=== PATIENT | male | born 1950 | race Caucasian/White ===

== ENCOUNTER 2017-12-13 14:38 | Inpatient (IN) | payer OTHER ==
[~2017-12-13] VITALS: Ht 167.6 cm; Wt 120.7 kg
[~2017-12-13 14:38] MED LIST: ALBUTEROL 3 ML3 ML INH; ALBUTEROL0.09 MG/A1 INH; ATORVASTATIN CA20 MG PO; AUGMENTIN 875875 MG PO; DIOVAN 160 MG160 MG PO; METFORMIN1000 MG PO; NORVASC 5MG TAB5 MG PO; NOVOLOG FLEX100 U/ML SC; NOVOLOG100 U/ML SC; PREDNISONE 10MG10 M1 PO; SYMBICORT 80/4.1 PUF INH; VALSARTAN AND H1 TA3 PO
--- NOTE | 2017-12-13 15:29 | ED DYSPNEA/ASTHMA COMPLAINT ---
History of Present Illness General Chief Complaint: Dyspnea (COPD, CHF, Other) Stated Complaint: SOB Source: patient, family Exam Limitations: no limitations Allergies Coded Allergies: NO KNOWN ALLERGIES (03/06/15) Reconcile Medications Albuterol Sulfate (Albuterol Sulfate Hfa) 0.09 MG/Actuation JEFF 2 PUFF INH Q4- 6 PRN PRN SHORTNESS OF BREATH 90 MCG PER PUFF Amlodipine (Norvasc 5MG Tab) 5 MG TABLET 1 TAB PO DAILY HTN (Reported) Amoxicillin/Clavulanate Potass (Amox-Clav 875-125 MG Tablet) 875 MG TAB 1 TAB PO BID LUNG INFECTION take 1st dose on 03/10 morning. PLEASE CONTINUE TILL 03/12/2015. Atorvastatin Calcium (Lipitor) 20 MG TABLET 1 TAB PO DAILY CHOLESTEROL ( Reported) Budesonide/Formoterol Fumara (Symbicort 80-4.5 Mcg Inhaler) 80 MCG/4.5 MCG PUF 2 PUF INH BID breathing INSULIN ASPART (Novolog Flexpen) 100 U/ML MELISSA 0 SC DAILY DIABETES BEFORE MEALS Blood Insulin Sugar Units <80 0 81-150 0 151-200 2 201-250 4 251-300 6 301-350 8 351-400 10 >400 Call Doctor Prednisone 10 MG TAB 0 PO DAILY BREATHING On 03/09 evening please take 20 mg PO prednisone. On Take 03/10 40 MG 03/11-03/12 30 MG 03/13-03/14 20 MG 03/15-03/16 10 MG Then Stop Valsartan (Diovan) 160 MG TAB 1 TAB PO DAILY blood pressure Triage Note: PT TO ED FOR WORSENING SOB THAT BEGAN ON SATURDAY, SAW PCP AND PLACED ON PRED AND ABX, SAW PCP AGAIN AND REFERRED TO ED FOR CONTINUING SOB, RA SAT 85% PLACED ON 2LNC AND RA IMPROVED TO 94%. PT REPORTING NON PRODUCTIVE COUGH, WEAKNESS AND LETHARGY, DENIES FEVERS. Triage Nurses Notes Reviewed? yes Onset: Gradual Duration: getting worse Timing: recent history Severity: severe HPI: Patient is a 67-year-old male with a past medical history of hypertension hyperlipidemia and diabetes and a former remote tobacco smoker presents with 45 years ago who presents to emergency with concerns of a one-week history of gradual onset of cough and dyspnea on exertion shortness of breath generalized weakness and fatigue chills and intermittent chest substernal pain. Patient was evaluated earlier this week was prescribed amoxicillin antitussives steroids and inhaler WITH complaining of worsening symptoms (Yasir Aguilar) Vital Signs & Intake/Output Vital Signs & Intake/Output Vital Signs Date Time Temp Pulse Resp B/P B/P Pulse O2 O2 Flow FiO2 Mean Ox Delivery Rate 12/13 1728 98 Nasal 2.0L Cannula 12/13 1454 98.6 89 18 167/77 99 Room Air (Randa HUGO,Compa Alex) Past History Travel History Traveled to [place] past 21 day No Medical History Any Pertinent Medical History? see below for history Neurological: NONE EENT: NONE Cardiovascular: hypertension, hyperlipidemia Respiratory: NONE Gastrointestinal: NONE Hepatic: NONE Renal: NONE Musculoskeletal: NONE Psychiatric: NONE Endocrine: diabetes Blood Disorders: NONE Cancer(s): NONE CANCER RESEARCHER/Reproductive: NONE History of MRSA: No History of VRE: No History of CDIFF: No Surgical History Surgical History: non-contributory Psychosocial History Who do you live with Spouse Services at Home None What is your primary language Macedonian Tobacco Use: Never used ETOH Use: denies use Illicit Drug Use: denies illicit drug use Family History Family History, If Any: FATHER (obesity, CAD s/p CABG). BROTHER (heart attack at age of 56). MOTHER (aortic aneurysm s/p repair). Relation not specified for: FH: aortic aneurysm FH: coronary artery bypass surgery FH: heart attack FH: obesity Hx Contributory? No (Yasir Aguilar) Review of Systems Review of Systems Constitutional: Reports: see HPI, chills. EENTM: Reports: no symptoms. Respiratory: Reports: see HPI, cough, short of breath. Cardiovascular: Reports: see HPI, peripheral edema. GI: Reports: no symptoms. Genitourinary: Reports: no symptoms. Musculoskeletal: Reports: see HPI. Skin: Reports: no symptoms. Neurological/Psychological: Reports: no symptoms. Hematologic/Endocrine: Reports: no symptoms. Immunologic/Allergic: Reports: no symptoms. All Other Systems: Reviewed and Negative (Yasir Aguilar) Physical Exam Physical Exam General Appearance: no apparent distress, obese Head: atraumatic Eyes: Bilateral: normal appearance, PERRL, EOMI. Ears, Nose, Throat: normal pharynx, normal ENT inspection, hearing grossly normal Neck: normal inspection Respiratory: no respiratory distress, rhonchi Peripheral Pulses: 2+ radial (R), 2+ radial (L) Gastrointestinal: normal bowel sounds, soft, non-tender Neurologic/Psych: no motor/sensory deficits, awake, alert, oriented x 3 Skin: intact, normal color, warm/dry Core Measures ACS in differential dx? No CVA/TIA Diagnosis No Sepsis Present: No Sepsis Focused Exam Completed? No (Yasir Aguilar) Progress Differential Diagnosis: asthma, AMI, bronchitis, costochondritis, CHF, COPD, musculoskeletal pain, pericarditis, pulmonary embolism, pneumonia, pneumothorax, rib fracture, unstable angina Diagnostic Imaging: Viewed by Me: Radiology Read. Initial ED EK BPM, LAD Prior EKG: unchanged Comments: PATIENT: ELADIO CARVALHO PRESENT AGE: 67 PATIENT ACCOUNT NO: [id number] : 51 LOCATION: [facility] ORDERING PHYSICIAN: Yasir ARREDONDO SERVICE DATE: 12/13/17 EXAM TYPE: RAD - XRY-CHEST XRAY, TWO VIEWS EXAMINATION: XR CHEST CLINICAL INFORMATION: Shortness of breath, leg swelling, cough and rhonchi COMPARISON: 03/14/2015 TECHNIQUE: 2 views of the chest were obtained. FINDINGS: Lungs are chronically hyperexpanded with relative flattening of diaphragms. No pulmonary edema, consolidation or pleural effusion. Cardiac silhouette is normal in size. Chronic, mild prominence of hilar vessels is noted. There is atherosclerotic calcification of the aorta. No acute osseous abnormality. IMPRESSION: 1. Pulmonary emphysema. 2. No evidence of cardiomegaly, congestive heart failure or other acute pathology compared to 03/14/2015. DICTATED BY: Ariel Donahue MD DATE/TIME DICTATED:12/13/171629 CORE EXTRUDER:JIMBO DATE/TIME TRANSCRIBED:12/13/171629 CONFIDENTIAL, DO NOT COPY WITHOUT (Yasir Aguilar) Plan of Care: Orders Procedure Date/time Status Consistent Carbohydrate 1 12/14 B Active LACTIC ACID 12/13 1841 Active Misc Message 12/13 175 Active ED Holding Orders 12/13 175 Active Admit to inpatient 12/13 175 Active Vital Signs 12/13 175 Active Code Status 12/13 175 Active COMPREHENSIVE METABOLIC PANEL 12/13 1635 Complete Telemetry/Concessions Manager 12/13 1543 Active LACTIC ACID 12/13 1541 Complete CBC WITHOUT DIFFERENTIAL 12/13 1541 Complete ARTERIAL BLOOD GAS (GEN) 12/13 1540 Complete RAPID VIRAL INFLUENZA A 12/13 1540 Complete LOWER RESPIRATORY CULTURE 12/13 1540 Active BLOOD CULTURE 12/13 1540 Active TROPONIN LEVEL 12/13 1540 Complete D-DIMER 12/13 1540 Complete B-TYPE NATRIURETIC PEP (BNP) 12/13 1540 Complete EKG 12/13 1540 Active Current Medications Sig/Maya Start time Last Medication Dose Stop Time Status Admin Sodium Chloride 1,000 ML BOLUS ONE 12/13 1745 UNVr (Normal Saline 0.9%) 12/13 1844 Laboratory Tests 12/13/17 1635: Lactic Acid 1.9 12/13/17 1635: Anion Gap 13, Estimated GFR 38 L, BUN/Creatinine Ratio 17.8, Glucose 177 H, Calcium 9.2, Total Bilirubin 0.3, AST 42, ALT 51, Alkaline Phosphatase 87, Troponin I < 0.01, Bcm-M-Qjmdolccuwh Pept 295 H, Total Protein 7.2, Albumin 3.6 , Globulin 3.6, Albumin/Globulin Ratio 1.0 L, D-Dimer High Sensitivty 242, CBC w Diff NO MAN DIFF REQ, RBC 4.63 L, MCV 95.8 H, MCH 31.8 H, MCHC 33.2, RDW 12.8, MPV 7.5, Gran % 71.4, Lymphocytes % 13.7 L, Monocytes % 14.6 H, Eosinophils % 0, Basophils % 0.3, Absolute Granulocytes 7.1 H, Absolute Lymphocytes 1.4, Absolute Monocytes 1.4 H, Absolute Eosinophils 0, Absolute Basophils 0 12/13/17 1550: Bicarbonate Actual 31 H, Mixed VBG pH 7.30 L, Mixed VBG pCO2 63 H, Mixed VBG O2 Saturation 35, Carboxyhemoglobin 1.2 L, O2 Concentration % RA, O2 Delivery Method RA, Phlebotomy Draw Site RIGHT RADIAL Microbiology 12/13 1745 BLOOD: Blood Culture - RECD 12/13 1635 BLOOD: Blood Culture - RECD 12/13 1540 LOWER RESP: Respiratory Culture - ORD 12/13 1540 LOWER RESP: Gram Stain - ORD 12/13 1525 NASOPHARYN: Influenza Virus A & B Rapid Smear - COMP Patient on initial presentation was noted to be hypoxic ABG was obtained patient was given 2 L of supplemental oxygen Patient on exam has rhonchi however no respiratory distress Patient after labs were resulted has concerns of a new onset of COPD and most likely bronchitis NO concerns of pneumonia pe or myocardial infarction, discussed admission with patient which she agrees. (Yasir Aguilar) (Randa HUGO,Compa Alex) Departure Departure Disposition: STILL A PATIENT Condition: Stable Clinical Impression Primary Impression: COPD exacerbation Secondary Impressions: Bronchitis, Respiratory failure Referrals: Alen HUGO,Solitario Ojeda (PCP/Family) Departure Forms: Customer Survey General Discharge Information Admission Note Spoke With: Marlon Prasad MD Documentation of Exam: Documentation of any treatments & extenuating circumstances including Concerns Regarding Discharge (functional status, medication knowledge or non-compliance, living conditions, etc.) that warrant an admission rather than observation: [ Patient requires pulmonary consultation repeat nebulizer IV Solu-Medrol repeat labs oxygen supplementation] (Yasir Aguilar) PA/WASHERETTE MACHINE OPERATOR Co-Sign Statement Statement: ED Attending supervision documentation- [X] I saw and evaluated the patient. I have also reviewed all the pertinent lab results and diagnostic results. I agree with the findings and the plan of care as documented in the PA's/WASHERETTE MACHINE OPERATOR's documentation. [] I have reviewed the ED Record and agree with the PA's/WASHERETTE MACHINE OPERATOR's documentation. [] Additions or exceptions (if any) to the PAs/WASHERETTE MACHINE OPERATOR's note and plan are summarized below: [] (Randa HUGO,Compa Alex) Critical Care Note Critical Care Note Critical Care Time: non-applicable (Yasir Aguilar)
--- NOTE | 2017-12-13 16:37 | RADIOLOGY REPORT ---
EXAMINATION: XR CHEST CLINICAL INFORMATION: Shortness of breath, leg swelling, cough and rhonchi COMPARISON: 03/14/2015 TECHNIQUE: 2 views of the chest were obtained. FINDINGS: Lungs are chronically hyperexpanded with relative flattening of diaphragms. No pulmonary edema, consolidation or pleural effusion. Cardiac silhouette is normal in size. Chronic, mild prominence of hilar vessels is noted. There is atherosclerotic calcification of the aorta. No acute osseous abnormality. IMPRESSION: 1. Pulmonary emphysema. 2. No evidence of cardiomegaly, congestive heart failure or other acute pathology compared to 03/14/2015.
[2017-12-13 16:51] LABS: ABSOLUTE BASOPHIL COUNT 0 /CUMM (0.0-0.2); ABSOLUTE EOSINOPHIL COUNT 0 /CUMM (0.0-0.7); ABSOLUTE GRANULOCYTE CT 7.1 /CUMM (1.4-6.5); ABSOLUTE LYMPH COUNT 1.4 /CUMM (1.2-3.4); ABSOLUTE MONOCYTE COUNT 1.4 /CUMM (0.10-0.60); BASOPHIL % 0.3 % (0.0-2.0); EOSINOPHIL % 0 % (0-5); GRANULOCYTE % 71.4 % (42.2-75.2); HEMATOCRIT 44.4 % (42-52); MEAN CORPUSCULAR HGB 31.8 PG (27.0-31.0); MEAN CORPUSCULAR HGB CONC 33.2 G/DL (33.0-37.0); MEAN CORPUSCULAR VOLUME 95.8 FL (80.0-94.0); MEAN PLATELET VOLUME 7.5 FL (7.4-10.4); PLATELET COUNT 339 /CUMM (130-400); RBC DISTRIBUTION WIDTH 12.8 % (11.5-14.5); RED BLOOD CELL CT 4.63 /CUMM (4.70-6.10); WHITE BLOOD CELL COUNT 9.9 /CUMM (4.8-10.8)
--- NOTE | 2017-12-13 18:06 | History & Physical ---
Vadim HUGO,[facility] 12/13/17 1805: General Information and HPI MD Statement: I have seen and personally examined ELADIO CARVALHO and documented this H&P. The patient is a 67 year old M who presented with a patient stated chief complaint of [shortness of breath]. Source of Information: patient Exam Limitations: no limitations History of Present Illness: 67 yo M pmhx of htn, hld, diabetes, [id number] smoking history but quit 12 years ago presenting for shortness of breath with exertion. The patient states that his episode last week. Started off as chest pain progressed cough. The patient states he went to his PCP about medications. Patient states that the medications given were albuterol, Robitussin, measure, and Augmentin. The patient then states that he is/congestion loosened up in his lungs which then the breathing issues. The patient states that the pain went away however his shortness of breath has worsened throughout 3. The patient had a follow-up appointment with his primary care physician today who stated that the patient needed a chest x-ray today and he was sent to the emergency department. The patient of note states that he has had swelling of his lower extremities the past 6 months. The patient does state his has been sick with a cough and cold. The patient denies any chest pain currently, fevers, chills, abdominal pain, nausea vomiting/diarrhea, headaches, changes in swelling, or changes in elimination. Allergies/Medications Allergies: Coded Allergies: venom-honey bee (ANAPHYLAXIS 12/13/17) Home Med list Albuterol Sulfate (Proair Hfa) 90 MCG HFA.AER.AD 2 PUF INH AD PRN RESP. ( Reported) Amlodipine Besylate 10 MG TABLET 1 TAB PO DAILY BP (Reported) Amoxicillin/Clavulanate Potass (Amox-Clav 875-125 MG Tablet) 875 MG-125 MG TABLET 1 TAB PO BID ANTIBIOTIC (Reported) Atorvastatin Calcium 20 MG TABLET 1 TAB PO DAILY CHOLESTEROL (Reported) Codeine Phosphate/Guaifenesi (Codeine-Guaifen 10-100 MG/5 Ml) 10 MG-100 MG/5 ML LIQUID 10 ML PO Q4H PRN COUGH (Reported) Metformin HCl 1,000 MG TABLET 1 TAB PO DAILY DM (Reported) Methylprednisolone 4 MG TAB.DS.PK STEROID TAPER (Reported) Past History Travel History Traveled to [place] past 21 day No Medical History Neurological: NONE EENT: NONE Cardiovascular: hypertension, hyperlipidemia Respiratory: NONE Gastrointestinal: NONE Hepatic: NONE Renal: NONE Musculoskeletal: NONE Psychiatric: NONE Endocrine: diabetes Blood Disorders: NONE Cancer(s): NONE METAL DEALER/Reproductive: NONE History of MRSA: No History of VRE: No History of CDIFF: No Surgical History Surgical History: non-contributory Past Family/Social History Family History Relations & Conditions if any FATHER (obesity, CAD s/p CABG). BROTHER (heart attack at age of 56). MOTHER (aortic aneurysm s/p repair). Relation not specified for: FH: aortic aneurysm FH: coronary artery bypass surgery FH: heart attack FH: obesity Psychosocial History Services at Home: None ETOH Use: denies use Illicit Drug Use: denies illicit drug use Review of Systems Review of Systems Constitutional: Reports: see HPI. Denies: chills, fever. Cardiovascular: Reports: no symptoms. Respiratory: Reports: cough, short of breath, sputum production. GI: Reports: no symptoms. Genitourinary: Reports: no symptoms. Musculoskeletal: Reports: no symptoms. Exam & Diagnostic Data Last 24 Hrs of Vital Signs/I&O Vital Signs Date Time Temp Pulse Resp B/P B/P Pulse O2 O2 Flow FiO2 Mean Ox Delivery Rate 12/13 2244 94 Nasal 3.0L Cannula 12/13 2100 98.5 85 20 160/80 95 Room Air 12/13 1958 98.1 90 24 170/81 93 Nasal 2.0L Cannula 12/13 1728 98 Nasal 2.0L Cannula 12/13 1454 98.6 89 18 167/77 99 Room Air Intake & Output 12/14 0800 12/14 0000 12/13 1600 Intake Total 300 Output Total 0 Balance 300 Intake, Oral 300 Output, Urine 0 Patient 266 lb 250 lb Weight Weight Reported by Patient Reported by Patient Measurement Method Physical Exam General Appearance Alert, Oriented X3, Cooperative, No Acute Distress Cardiovascular Regular Rate, Normal S1, Normal S2 Lungs diffuse decreased breath sounds., diffuse wheezing Abdomen Normal Bowel Sounds, Soft, No Tenderness Extremities 3+ lower extremity edema Vascular Pulses Symmetrical, 2+ radial pulses Last 24 Hrs of Labs/Mc: Laboratory Tests 12/13/17 1841: Lactic Acid Cancelled 12/13/17 1635: Lactic Acid 1.9 12/13/17 1635: Anion Gap 13, Estimated GFR 38 L, BUN/Creatinine Ratio 17.8, Glucose 177 H, Calcium 9.2, Total Bilirubin 0.3, AST 42, ALT 51, Alkaline Phosphatase 87, Troponin I < 0.01, Xmi-D-Itzuvftewcd Pept 295 H, Total Protein 7.2, Albumin 3.6 , Globulin 3.6, Albumin/Globulin Ratio 1.0 L, D-Dimer High Sensitivty 242, CBC w Diff NO MAN DIFF REQ, RBC 4.63 L, MCV 95.8 H, MCH 31.8 H, MCHC 33.2, RDW 12.8, MPV 7.5, Gran % 71.4, Lymphocytes % 13.7 L, Monocytes % 14.6 H, Eosinophils % 0, Basophils % 0.3, Absolute Granulocytes 7.1 H, Absolute Lymphocytes 1.4, Absolute Monocytes 1.4 H, Absolute Eosinophils 0, Absolute Basophils 0 12/13/17 1550: Bicarbonate Actual 31 H, Mixed VBG pH 7.30 L, Mixed VBG pCO2 63 H, Mixed VBG O2 Saturation 35, Carboxyhemoglobin 1.2 L, O2 Concentration % RA, O2 Delivery Method RA, Phlebotomy Draw Site RIGHT RADIAL Microbiology 12/13 1809 URINE ROUT: Legionella Antigen - ORD 12/13 181 URINE ROUT: Streptococcus pneumoniae Antigen (M - ORD 12/13 1745 BLOOD: Blood Culture - RECD 12/13 1635 BLOOD: Blood Culture - RECD 12/13 1540 LOWER RESP: Respiratory Culture - ORD 12/13 1540 LOWER RESP: Gram Stain - ORD 12/13 1525 NASOPHARYN: Influenza Virus A & B Rapid Smear - COMP Assessment/Plan Assessment: 67 yo M pmhx of htn, hld, diabetes, 60-fdzn-hbsu smoking history but quit 12 years ago presenting for shortness of breath with exertion most likely due to COPD exacerbation. #COPD T 98.6 WBC 9.9 Troponin less than 0.01 Lactic acid 1.9 VBG: bicarb 31, ph 7.3, pc02 63, o2 sat 35/61%, carboxy hemoglobin 1.2 Rapid flu negative CXR: emphysema Bnp 295 Received IV methylprednisone, azithromycin, albuterol x1 -f/u urinary strep and legionella -cont trc nebs, symbicort, IV Solu-Medrol, Mucinex -cont azithromycin #ckd Cr 1.8 -stable, cont to monitor #htn -cont amlodipine, valsartan #hld -cont atorvastatin #diabetes -novolog sliding scale #DVT prophylaxis -Heparin #full code As Ranked By This Provider Problem List: 1. COPD exacerbation Core Measures/Misc (08/04) Acute Coronary Syndrome ACS Diagnosis: No Congestive Heart Failure Congestive Heart Failure Diagnosis No Cerebrovascular Accident CVA/TIA Diagnosis: No VTE (View Protocol) VTE Risk Factors Acute Medical Illness No Mechanical VTE Prophylaxis d/t Other No VTE Pharm Prophylaxis d/t NA PharmProphylax ordered Sepsis (View protocol) Sepsis Present: No Salvador HUGO, [facility] 12/14/17 0149: Attending MD Review Statement Attending Statement Attending MD Statement: examined this patient, discuss w/resident/PA/AUTOMOBILE UPHOLSTERER APPRENTICE, agreed w/resident/PA/AUTOMOBILE UPHOLSTERER APPRENTICE, discussed with family, reviewed images, amended to note Attending Assessment/Plan: 67 yo M with h/o HTN, T2DM, CKD stage 3, COPD (former smoker quit 11 yrs ago, smoked 2 PPD for 40 yrs), is here with c/o progressive dyspnea and cough. Patient reports dry cough started 1 week back associated with right sided sharp pains under right breast (worse with coughing). He saw his PCP who prescribed him Augmentin, albuterol, robitussion and medrol. Cough loosened up but his breathing got progressively worse so his PCP asked him to come to ER for eval. Sick contact . He did not get flu shot as he gets a reaction to it. He was last admitted to [facility] for pneumonia (2014), had outpatient PFT 2015 - severe COPD, but never followed up with [facility] [employer]. He has never been intubated. He was to get a sleep study but has not got one yet. Also c/o bilateral LE edema with weight gain over past 6 months, no diagnosis of CHF not been on diuretics. c/o exertional dyspnea over past 6 months and orthopnea over past 1 week. Vitals stable, except O2 sats 85% on RA --> 94% on 3L. Exam: AAO, in mild respiratory distress, Neck supple, Chest b/l reduced air entry with diffuse wheeze and basilar rhonchi+, Heart S1S2 regular, Abd soft, NT , LE: b/l 2+ pedal edema. Labs: no leukocytosis, D-dimer neg, bicarb 31, BUN 32, creat 1.8, glucose 177, lactic acid 1.9, trop neg, proBNP 295. VB.30/63/61/31. CXR: pulmonary emphysema, no consolidation or effusion. EKG: sinus rhythm, LAD, no acute changes. Assessment and plan: 1. Acute hypoxemic and hypercarbic respiratory failure 2. COPD exacerbation in the setting of acute bronchitis, no evidence of pneumonia 3. Bilateral LE edema of unclear etiology 4. Essential hypertension 5. Type 2 diabetes 6. CKD stage 3 - Admit to general medicine - [facility] nebs - Sputum culture - IV solumedrol 40 mg Q8 - PO azithromycin for 5 days - Pulm consult (Dr. Balderrama) - Initiate symbicort BID and mucinex BID - Outpatient sleep study - Echo to assess LV function, pulmonary pressures and valvular disorder - Hold amlodipine as known to cause LE edema - Patient was on valsartan-hctz (2014) which was dced due to renal dysfunction - Consider Cardio consult for hypertension management - Consider - Diabetes management check HbA1c. Accucheks, hold metformin, initiate novolog SS while inpatient. DVT ppx Hep SC. Full code. Krishan Edwards 12/14/17 0251: Resident Review Statement Resident Statement: examined this patient, discussed with internet retailer, agreed with internet retailer, discussed with family, reviewed EMR data (avail), discussed with nursing , discussed with case mgmt, reviewed images, amended to note Other Findings: This is a 67-year-old male with past medical history significant for hypertension, hyperlipidemia, diabetes mellitus, former smoker, severe obstructive lung disease presented to the emergency room for evaluation of exertional shortness of breath, cough for one week. Patient reports exertional shortness of breath associated with non-productive cough for one week. He was seen at his PCP office on Saturday and he was given Z- Rodrick, Augmentin, Robitussin, albuterol inhaler. However he was reevaluated today at his PCP office for worsening of symptoms. He was sent to the ER for further evaluation. In The emergency room, patient reported exertional shortness of breath associated with nonproductive cough, generalized weakness, lethargy. He denied any fever, chills, chest pain, palpitations, recent travel history. However he reports being exposed to sick contacts lately. He also reports ongoing bilateral lower extremity swelling for 6 months. Never followed up with any early childhood coordinator. Of note patient is a former smoker quit smoking 12 years ago. He smoked 2 packs for 45 years. Denied alcohol abuse, illicit drug abuse. Pulmonary function tests were [place] [address] Torres which showed severe obstructive disease with a reversible component. -------- Vitals afebrile, heart rate 89, respiratory rate 18, blood pressure 160/77, saturating at 99 on 2 L. Pertinent labs CBCs normal, BUN 32, creatinine 1.8 at baseline. Venous BG suggestive of respiratory acidosis. Flu was negative. Chest x-ray positive for pulmonary emphysema. EKG 97, sinus rhythm, left axis deviation 1. Acute hypoxic respiratory failure secondary to COPD exacerbation and acute bronchitis Patient presented with worsening shortness of breath and nonproductive cough for one week. No relief with outpatient management. Patient was tachypneic in the emergency room requiring 2 L oxygen supplementation. He is afebrile with a normal WBC count, chest x-ray negative for consolidation. However he has severe pulmonary emphysema. Possible differentials COPD exacerbation and acute bronchitis given his COPD history versus pneumonia versus pulmonary embolism. However chest x-ray negative for pneumonia and d-dimers were normal. * Admit patient to general medicine for management of COPD exacerbation * monitor vitals every shift * Maintain oxygen saturation below 88% * Provide oxygen supplementation if necessary * IV methylprednisolone 40 every 8 * Azithromycin 500 mg daily for 5 qqvr-dyhv-gzigregwolbn effect * The total respiratory care * Mucinex * Inhaler treatments- duonebs * Follow blood culture and sputum culture * Follow-up urine Legionella and strep * Flu negative * Pulmonary consult in a.m. * pulmonary function tests in 2014 showed severe obstructive disease with a reversible component However patient is not aware of COPD. Never followed up with any mail service coordinator as an outpatient. * Patient needs outpatient sleep study too. Hypertension Patient takes amlodipine 10 mg daily at home for high blood pressure. However because of worsening lower extremity swelling will hold amlodipine for now. Bilateral lower extremity swelling Patient has +3 bilateral pitting edema. Never followed up with any early childhood coordinator. Will get echocardiogram. * Follow-up echocardiogram * Consider cardiology consult in the a.m. Hyperlipidemia-continue Lipitor 20 mg daily Oftaqvmn-Puya-Olzbw and insulin sliding scale. Hold metformin in the hospital. Chronic kidney disease from diabetes and hypertension-1.8 creatinine at baseline. DVT prophylaxis subcutaneous heparin Regular diet Full code
[2017-12-13] MEDS ORDERED: METFORMIN HCL1000 M1 PO (18:07)
[2017-12-13] MEDS ORDERED: AMLODIPINE BESY10 M1 PO (18:07)
[2017-12-13] MEDS ORDERED: ATORVASTATIN CA20 M1 PO (18:07)
[2017-12-13] MEDS ORDERED: METHYLPREDNISOLO4 M2 PO (18:08)
[2017-12-13] MEDS ORDERED: CODEINE-GUAIFE120 M1 PO (18:08)
[2017-12-13] MEDS ORDERED: AMOX-CLAV 875-1 EACH PO (18:08)
[2017-12-13] MEDS ORDERED: PROAIR HFA8.5 GM INH (18:08)
[2017-12-13 21:00] VITALS: BP 160/80
--- NOTE | 2017-12-14 01:49 | Admission Certification ---
Admission Certification Certification Statement - As attending physician, I certify that at the time of - admission, based on clinical presentation, severity of - symptoms, need for further diagnostic testing and - therapeutic interventions, and risk of adverse outcomes - without in-hospital treatment, in my clinical assessment, - this patient requires an acute hospital stay for a minimum - of two nights or longer. I have also considered psychsocial - factors such as support system, advanced age, financial - issues, cognitive issues, and failed out-patient treatments, - past re-admission history, safety of patient, and lack of - compliance as applicable. Specific rationale supporting this admission is: Acute hypoxemic and hypercarbic respiratory failure, COPD exacerbation, acute bronchitis.
[2017-12-14 06:44] VITALS: BP 160/82
--- NOTE | 2017-12-14 06:51 | PN- Housestaff ---
Krishan Edwards 12/14/17 0646: Subjective Follow-up For: 1. Acute hypoxemic and hypercarbic respiratory failure 2. COPD exacerbation in the setting of acute bronchitis, no evidence of pneumonia 3. Bilateral LE edema of unclear etiology 4. Essential hypertension 5. Type 2 diabetes 6. CKD stage 3 Subjective: Patient was seen and examined this morning. He is alert awake and oriented to time place and person. No acute events noticed. Patient reports exertional shortness of breath and nonproductive cough. Denied any fever or chills. Vitals were stable. No chest pain, palpitations. Review of Systems Constitutional: Reports: see HPI. Objective Last 24 Hrs of Vital Signs/I&O Vital Signs Date Time Temp Pulse Resp B/P B/P Pulse O2 O2 Flow FiO2 Mean Ox Delivery Rate 12/14 0644 98.7 98 20 160/82 90 Room Air 12/13 2244 94 Nasal 3.0L Cannula 12/13 2100 98.5 85 20 160/80 95 Room Air 12/13 1958 98.1 90 24 170/81 93 Nasal 2.0L Cannula 12/13 1728 98 Nasal 2.0L Cannula 12/13 1454 98.6 89 18 167/77 99 Room Air Intake & Output 12/14 0800 12/14 0000 12/13 1600 Intake Total 300 Output Total 0 Balance 300 Intake, Oral 300 Output, Urine 0 Patient 120.656 kg 113.398 kg Weight Weight Reported by Patient Reported by Patient Measurement Method Physical Exam General Appearance: Alert, Oriented X3, Cooperative, No Acute Distress Other Physical Findings: Cardiovascular Regular Rate, Normal S1, Normal S2 Lungs diffuse decreased breath sounds., diffuse wheezing Abdomen Normal Bowel Sounds, Soft, No Tenderness Extremities 3+ lower extremity edema Vascular Pulses Symmetrical, 2+ radial pulses Current Medications: Current Medications Sig/Maya Start time Last Medication Dose Route Stop Time Status Admin Acetaminophen 650 MG Q6P PRN 12/13 2044 AC PO Acetaminophen 1,000 MG Q6P PRN 12/13 2044 AC IV Albuterol Sulfate 3 ML Q6P PRN 12/13 2099 AC INH Albuterol Sulfate 2 PUF .[AD] PRN 12/13 2044 DC INH Albuterol Sulfate 3 ML ONCE ONE 12/13 1545 DC 12/13 INH 12/13 1546 1811 Atorvastatin Calcium 20 MG 1700 12/14 1700 AC PO Azithromycin 500 MG DAILY 12/14 1000 AC PO Azithromycin 500 MG ONCE ONE 12/13 1645 DC 12/13 Dextrose/Water 250 ML IV 12/13 1744 1945 Budesonide/ 2 PUF BID 12/13 2199 AC 12/13 Formoterol Fumarate INH 2257 Guaifenesin 600 MG Q12 12/13 2199 AC 12/13 PO 2258 Heparin Sodium 5,000 UNIT Q8 12/13 2199 AC 12/14 (Porcine) SC 0625 Insulin Aspart 0 TIDAC 12/13 2100 AC 12/13 SC 2258 Ipratropium [place] 2.5 ML DAILY 12/13 2044 AC INH Methylprednisolone 40 MG Q8 12/13 2199 AC 12/14 IV 0625 Methylprednisolone 0 .STK-MED ONE 12/13 194 DC .ROUTE Methylprednisolone 0 .STK-MED ONE 12/13 1758 DC .ROUTE Methylprednisolone 125 MG ONCE ONE 12/13 1645 DC 12/13 IV 12/13 1646 194 Sodium Chloride 1,000 ML BOLUS ONE 12/13 1745 DC 12/13 IV 12/13 1844 1945 Last 24 Hrs of Lab/Mc Results Last 24 Hrs of Labs/Mics: Laboratory Tests 12/13/17 1841: Lactic Acid Cancelled 12/13/17 1635: Lactic Acid 1.9 12/13/17 1635: Anion Gap 13, Estimated GFR 38 L, BUN/Creatinine Ratio 17.8, Glucose 177 H, Calcium 9.2, Total Bilirubin 0.3, AST 42, ALT 51, Alkaline Phosphatase 87, Troponin I < 0.01, Tlk-Y-Bplwirpisqy Pept 295 H, Total Protein 7.2, Albumin 3.6 , Globulin 3.6, Albumin/Globulin Ratio 1.0 L, D-Dimer High Sensitivty 242, CBC w Diff NO MAN DIFF REQ, RBC 4.63 L, MCV 95.8 H, MCH 31.8 H, MCHC 33.2, RDW 12.8, MPV 7.5, Gran % 71.4, Lymphocytes % 13.7 L, Monocytes % 14.6 H, Eosinophils % 0, Basophils % 0.3, Absolute Granulocytes 7.1 H, Absolute Lymphocytes 1.4, Absolute Monocytes 1.4 H, Absolute Eosinophils 0, Absolute Basophils 0 12/13/17 1550: Bicarbonate Actual 31 H, Mixed VBG pH 7.30 L, Mixed VBG pCO2 63 H, Mixed VBG O2 Saturation 35, Carboxyhemoglobin 1.2 L, O2 Concentration % RA, O2 Delivery Method RA, Phlebotomy Draw Site RIGHT RADIAL Microbiology 12/13 1809 URINE ROUT: Legionella Antigen - COLB 12/13 1809 URINE ROUT: Streptococcus pneumoniae Antigen (M - COLB 12/13 1745 BLOOD: Blood Culture - RECD 12/13 1635 BLOOD: Blood Culture - RECD 12/13 1540 LOWER RESP: Respiratory Culture - COLB 12/13 1540 LOWER RESP: Gram Stain - COLB 12/13 1525 NASOPHARYN: Influenza Virus A & B Rapid Smear - COMP Assessment/Plan Assessment: This is a 67-year-old male with past medical history significant for hypertension, hyperlipidemia, diabetes mellitus, former smoker, severe obstructive lung disease presented to the emergency room for evaluation of exertional shortness of breath, cough for one week. Vitals afebrile, heart rate 89, respiratory rate 18, blood pressure 160/77, saturating at 99 on 2 L. Pertinent labs CBCs normal, BUN 32, creatinine 1.8 at baseline. Venous BG suggestive of respiratory acidosis. Flu was negative. Chest x-ray positive for pulmonary emphysema. EKG 97, sinus rhythm, left axis deviation 1. Acute hypoxic respiratory failure secondary to COPD exacerbation and acute bronchitis Patient presented with worsening shortness of breath and nonproductive cough for one week. No relief with outpatient management. Patient was tachypneic in the emergency room requiring 2 L oxygen supplementation. He is afebrile with a normal WBC count, chest x-ray negative for consolidation. However he has severe pulmonary emphysema. Possible differentials COPD exacerbation and acute bronchitis given his COPD history versus pneumonia versus pulmonary embolism. However chest x-ray negative for pneumonia and d-dimers were normal. * Admited patient to general medicine for management of COPD exacerbation * monitor vitals every shift * Maintain oxygen saturation below 88% * Provide oxygen supplementation if necessary * IV methylprednisolone 40 every 8 * Azithromycin 500 mg daily for 5 bjjh-anqi-euuhykzymtew effect * The total respiratory care * Mucinex * Inhaler treatments- duonebs * Follow blood culture and sputum culture * Follow-up urine Legionella and strep * Flu negative * Pulmonary consult in a.m. * pulmonary function tests in 2014 showed severe obstructive disease with a reversible component However patient is not aware of COPD. Never followed up with any nurse case management as an outpatient. * Patient needs outpatient sleep study too. Hypertension Patient takes amlodipine 10 mg daily at home for high blood pressure. However because of worsening lower extremity swelling will hold amlodipine for now. * Consider cardio consult for lower extremity swelling and blood pressure management Bilateral lower extremity swelling Patient has +3 bilateral pitting edema. Never followed up with any information engineer. Will get echocardiogram. * Follow-up echocardiogram * Consider cardiology consult in the a.m. Hyperlipidemia-continue Lipitor 20 mg daily Zddqoztu-Umzx-Jmdtc and insulin sliding scale. Hold metformin in the hospital. Follow-up HbA1c Chronic kidney disease 3 from diabetes and hypertension-1.8 creatinine at baseline. DVT prophylaxis subcutaneous heparin Regular diet Full code Problem List: 1. COPD exacerbation Pain Ratin Pain Location: n/a Pain Goal: Remain pain free Pain Plan: tylinol Tomorrow's Labs & Rationales: cbc bep Broderick HUGO,[place] 12/14/17 1252: Attending MD Review Statement Attending Statement Attending MD Statement: examined this patient, discuss w/resident/PA/SQL TECH, agreed w/resident/PA/SQL TECH, discussed with family, reviewed EMR data (avail), discussed with nursing, reviewed images, amended to note Attending Assessment/Plan: Patient seen and examined, feels ok at rest. But still has ZALDIVAR, lower ext swelling. BP running high. Vital Signs Date Time Temp Pulse Resp B/P B/P Pulse O2 O2 Flow FiO2 Mean Ox Delivery Rate 12/14 0800 Room Air 12/14 0644 98.7 98 20 160/82 90 Room Air 12/13 2244 94 Nasal 3.0L Cannula 12/13 2100 98.5 85 20 160/80 95 Room Air 12/13 1958 98.1 90 24 170/81 93 Nasal 2.0L Cannula 12/13 1728 98 Nasal 2.0L Cannula 12/13 1454 98.6 89 18 167/77 99 Room Air on exam; aox3,nad. cv; s1,s2 rrr resp; overall decresaed bs. abd; soft, obese, bs+ ext; 2+ edema b/l le. Laboratory Tests 12/14 12/13 12/13 0850 1841 1635 Chemistry Sodium (137 - 145 mmol/L) 140 Potassium (3.5 - 5.1 mmol/L) 4.6 Chloride (98 - 107 mmol/L) 100 Carbon Dioxide (22 - 30 mmol/L) 27 Anion Gap (5 - 16) 13 BUN (9 - 20 mg/dL) 31 H Creatinine (0.7 - 1.2 mg/dL) 1.7 H Estimated GFR (>60 ml/min) 41 L BUN/Creatinine Ratio (7 - 25 %) 18.2 Lactic Acid (0.7 - 2.1 mmol/L) Cancelled 1.9 Hematology CBC w Diff NO MAN DIFF REQ WBC (4.8 - 10.8 /CUMM) 5.7 RBC (4.70 - 6.10 /CUMM) 4.30 L Hgb (14.0 - 18.0 G/DL) 13.8 L Hct (42 - 52 %) 41.5 L MCV (80.0 - 94.0 FL) 96.5 H MCH (27.0 - 31.0 PG) 32.1 H MCHC (33.0 - 37.0 G/DL) 33.3 RDW (11.5 - 14.5 %) 12.8 Plt Count (130 - 400 /CUMM) 314 MPV (7.4 - 10.4 FL) 8.0 Gran % (42.2 - 75.2 %) 81.1 H Lymphocytes % (20.5 - 51.1 %) 12.2 L Monocytes % (1.7 - 9.3 %) 6.5 Eosinophils % (0 - 5 %) 0.1 Basophils % (0.0 - 2.0 %) 0.1 Absolute Granulocytes (1.4 - 6.5 /CUMM) 4.6 Absolute Lymphocytes (1.2 - 3.4 /CUMM) 0.7 L Absolute Monocytes (0.10 - 0.60 /CUMM) 0.4 Absolute Eosinophils (0.0 - 0.7 /CUMM) 0 Absolute Basophils (0.0 - 0.2 /CUMM) 0 12/13 12/13 1635 1550 Blood Gas Bicarbonate Actual (22 - 26 MEQ/L) 31 H Mixed VBG pH (7.31 - 7.41 PH) 7.30 L Mixed VBG pCO2 (41 - 51 TORR) 63 H Mixed VBG O2 Saturation (35 - 45 TORR) 35 Carboxyhemoglobin (1.5 - 5.0 %) 1.2 L O2 Concentration % RA O2 Delivery Method RA Chemistry Sodium (137 - 145 mmol/L) 143 Potassium (3.5 - 5.1 mmol/L) 4.6 Chloride (98 - 107 mmol/L) 99 Carbon Dioxide (22 - 30 mmol/L) 31 H Anion Gap (5 - 16) 13 BUN (9 - 20 mg/dL) 32 H Creatinine (0.7 - 1.2 mg/dL) 1.8 H Estimated GFR (>60 ml/min) 38 L BUN/Creatinine Ratio (7 - 25 %) 17.8 Glucose (65 - 99 mg/dL) 177 H Hemoglobin A1c (4.2 - 5.8 %) Pending Calcium (8.4 - 10.2 mg/dL) 9.2 Total Bilirubin (0.2 - 1.3 mg/dL) 0.3 AST (17 - 59 U/L) 42 ALT (21 - 72 U/L) 51 Alkaline Phosphatase (< 127 U/L) 87 Troponin I (<0.11 ng/ml) < 0.01 Wsz-H-Jidtqbhyqrx Pept (<125 pg/mL) 295 H Total Protein (6.3 - 8.2 g/dL) 7.2 Albumin (3.5 - 5.0 g/dL) 3.6 Globulin (1.9 - 4.2 gm/dL) 3.6 Albumin/Globulin Ratio (1.1 - 2.2 %) 1.0 L Coagulation D-Dimer High Sensitivty (0 - 243 ng/ml) 242 Hematology CBC w Diff NO MAN DIFF REQ WBC (4.8 - 10.8 /CUMM) 9.9 RBC (4.70 - 6.10 /CUMM) 4.63 L Hgb (14.0 - 18.0 G/DL) 14.7 Hct (42 - 52 %) 44.4 MCV (80.0 - 94.0 FL) 95.8 H MCH (27.0 - 31.0 PG) 31.8 H MCHC (33.0 - 37.0 G/DL) 33.2 RDW (11.5 - 14.5 %) 12.8 Plt Count (130 - 400 /CUMM) 339 MPV (7.4 - 10.4 FL) 7.5 Gran % (42.2 - 75.2 %) 71.4 Lymphocytes % (20.5 - 51.1 %) 13.7 L Monocytes % (1.7 - 9.3 %) 14.6 H Eosinophils % (0 - 5 %) 0 Basophils % (0.0 - 2.0 %) 0.3 Absolute Granulocytes (1.4 - 6.5 /CUMM) 7.1 H Absolute Lymphocytes (1.2 - 3.4 /CUMM) 1.4 Absolute Monocytes (0.10 - 0.60 /CUMM) 1.4 H Absolute Eosinophils (0.0 - 0.7 /CUMM) 0 Absolute Basophils (0.0 - 0.2 /CUMM) 0 Miscellaneous Phlebotomy Draw Site RIGHT RADIAL A/P: 67-year-old male with obesity, hypertension, diabetes, chronic kidney disease stage III admitted with shortness of breath likely secondary to acute bronchitis. Patient also has bilateral lower extremity edema. Please resume his Norvasc. Patient needs echocardiogram. Please check venous Doppler ultrasound bilateral lower extremity. Continue IV steroids. Continue azithromycin. Continue TRC nebs. Appreciate pulmonology input. DVT px; hep sq.
[2017-12-14 10:08] LABS: ABSOLUTE BASOPHIL COUNT 0 /CUMM (0.0-0.2); ABSOLUTE EOSINOPHIL COUNT 0 /CUMM (0.0-0.7); ABSOLUTE GRANULOCYTE CT 4.6 /CUMM (1.4-6.5); ABSOLUTE LYMPH COUNT 0.7 /CUMM (1.2-3.4); ABSOLUTE MONOCYTE COUNT 0.4 /CUMM (0.10-0.60); BASOPHIL % 0.1 % (0.0-2.0); EOSINOPHIL % 0.1 % (0-5); GRANULOCYTE % 81.1 % (42.2-75.2); HEMATOCRIT 41.5 % (42-52); MEAN CORPUSCULAR HGB 32.1 PG (27.0-31.0); MEAN CORPUSCULAR HGB CONC 33.3 G/DL (33.0-37.0); MEAN CORPUSCULAR VOLUME 96.5 FL (80.0-94.0); PLATELET COUNT 314 /CUMM (130-400); RBC DISTRIBUTION WIDTH 12.8 % (11.5-14.5); WHITE BLOOD CELL COUNT 5.7 /CUMM (4.8-10.8)
--- NOTE | 2017-12-14 10:48 | Cons- Pulmonary ---
General Information and HPI Consulting Request Date of Consult: 12/14/17 Requested By: Ryann Reason for Consult: Shortness of breath and hypoxic respiratory failure secondary to severe COPD History of Present Illness: Patient is 67-year-old gentleman with history of diabetes hypertension obesity severe COPD admitted with increased shortness of breath having failed outpatient treatment. He has a [id number] smoking history despite having quit 12 years ago. Pulmonary function tests in the past have shown severe COPD. Lung cancer screening as well has shown evidence of bronchial wall thickening and emphysema. Over the past week he's had increasing shortness of breath despite having been given a Medrol Dosepak and Augmentin.. Allergies/Medications Allergies: Coded Allergies: venom-honey bee (ANAPHYLAXIS 12/13/17) Home Med List: Albuterol Sulfate (Proair Hfa) 90 MCG HFA.AER.AD 2 PUF INH AD PRN RESP. ( Reported) Amlodipine Besylate 10 MG TABLET 1 TAB PO DAILY BP (Reported) Amoxicillin/Clavulanate Potass (Amox-Clav 875-125 MG Tablet) 875 MG-125 MG TABLET 1 TAB PO BID ANTIBIOTIC (Reported) Atorvastatin Calcium 20 MG TABLET 1 TAB PO DAILY CHOLESTEROL (Reported) Codeine Phosphate/Guaifenesi (Codeine-Guaifen 10-100 MG/5 Ml) 10 MG-100 MG/5 ML LIQUID 10 ML PO Q4H PRN COUGH (Reported) Metformin HCl 1,000 MG TABLET 1 TAB PO DAILY DM (Reported) Methylprednisolone 4 MG TAB.DS.PK STEROID TAPER (Reported) Review of Systems Review of Systems Constitutional: Denies: chills, fever. Cardiovascular: Reports: edema, peripheral edema. Denies: chest pain. Respiratory: Reports: cough, short of breath. Denies: hemoptysis, sputum production, wheezing. GI: Denies: abdominal pain, diarrhea, melena. Past History Travel History Traveled to [place] past 21 day No Medical History Blood Transfusion Hx: No Neurological: NONE EENT: NONE Cardiovascular: hypertension, hyperlipidemia Respiratory: NONE Gastrointestinal: NONE Hepatic: NONE Renal: NONE Musculoskeletal: NONE Psychiatric: NONE Endocrine: diabetes Blood Disorders: NONE Cancer(s): NONE CHEMICAL RADIATION TECHNICIAN/Reproductive: NONE Surgical History Surgical History: non-contributory Family History Relations & Conditions If Any: FATHER (obesity, CAD s/p CABG). BROTHER (heart attack at age of 56). MOTHER (aortic aneurysm s/p repair). Relation not specified for: FH: aortic aneurysm FH: coronary artery bypass surgery FH: heart attack FH: obesity Psychosocial History Services at Home: None Smoking Status: Former Smoker ETOH Use: denies use Illicit Drug Use: denies illicit drug use Exam & Diagnostic Data Last 24 Hrs of Vital Signs/I&O Vital Signs Date Time Temp Pulse Resp B/P B/P Pulse O2 O2 Flow FiO2 Mean Ox Delivery Rate 12/14 0800 Room Air 12/14 0644 98.7 98 20 160/82 90 Room Air 12/13 2244 94 Nasal 3.0L Cannula 12/13 2100 98.5 85 20 160/80 95 Room Air 12/13 1958 98.1 90 24 170/81 93 Nasal 2.0L Cannula 12/13 1728 98 Nasal 2.0L Cannula 12/13 1454 98.6 89 18 167/77 99 Room Air Intake & Output 12/14 1600 12/14 0800 12/14 0000 Intake Total 300 300 Output Total 0 Balance 300 300 Intake, Oral 300 300 Number 1 Bowel Movements Output, Urine 0 Patient 266 lb Weight Weight Reported by Patient Measurement Method Room air oxygen saturation 90% exam of his chest shows diminished breath sounds there are no wheezes or crackles cardiac exam shows regular S1 and S2 without murmurs abdomen is soft nontender extremities have 2+ symmetrical pitting edema Last 48 Hrs of Labs/Mc: Laboratory Tests 12/14/17 0850: Sodium Pending, Potassium Pending, Chloride Pending, Carbon Dioxide Pending, Anion Gap Pending, BUN Pending, Creatinine Pending, BUN/Creatinine Ratio Pending , CBC w Diff NO MAN DIFF REQ, RBC 4.30 L, MCV 96.5 H, MCH 32.1 H, MCHC 33.3, RDW 12.8, MPV 8.0, Gran % 81.1 H, Lymphocytes % 12.2 L, Monocytes % 6.5, Eosinophils % 0.1, Basophils % 0.1, Absolute Granulocytes 4.6, Absolute Lymphocytes 0.7 L, Absolute Monocytes 0.4, Absolute Eosinophils 0, Absolute Basophils 0 12/13/17 1841: Lactic Acid Cancelled 12/13/17 1635: Lactic Acid 1.9 12/13/17 1635: Anion Gap 13, Estimated GFR 38 L, BUN/Creatinine Ratio 17.8, Glucose 177 H, Hemoglobin A1c Pending, Calcium 9.2, Total Bilirubin 0.3, AST 42, ALT 51, Alkaline Phosphatase 87, Troponin I < 0.01, Xeh-N-Imruqlxuejs Pept 295 H, Total Protein 7.2, Albumin 3.6, Globulin 3.6, Albumin/Globulin Ratio 1.0 L, D-Dimer High Sensitivty 242, CBC w Diff NO MAN DIFF REQ, RBC 4.63 L, MCV 95.8 H, MCH 31.8 H, MCHC 33.2, RDW 12.8, MPV 7.5, Gran % 71.4, Lymphocytes % 13.7 L, Monocytes % 14.6 H, Eosinophils % 0, Basophils % 0.3, Absolute Granulocytes 7.1 H, Absolute Lymphocytes 1.4, Absolute Monocytes 1.4 H, Absolute Eosinophils 0, Absolute Basophils 0 12/13/17 1550: Bicarbonate Actual 31 H, Mixed VBG pH 7.30 L, Mixed VBG pCO2 63 H, Mixed VBG O2 Saturation 35, Carboxyhemoglobin 1.2 L, O2 Concentration % RA, O2 Delivery Method RA, Phlebotomy Draw Site RIGHT RADIAL Microbiology 12/13 1525 NASOPHARYN: Influenza Virus A & B Rapid Smear - COMP Assessment/Plan Impression/Plan: 67-year-old with severe COPD on prior pulmonary function tests admitted with increasing shortness of breath and increasing leg edema. He has history of snoring and there is a high index of suspicion of sleep apnea. He likely has exacerbation of COPD complicated by possible pulmonary hypertension from untreated sleep apnea lower extremity edema either due to antihypertensives or pulmonary hypertension Recommendations: Assess oxygen saturation with ambulation. She should have outpatient follow-up PFTs and sleep study. Change sputum C&S. DVT prophylaxis. Continue current pulmonary regimen. Management of his blood pressure per primary care team. Obtain cardiac ultrasound Consult Acknowledgment - Thank you for your consult request.
[2017-12-14 14:07] VITALS: BP 160/80
[2017-12-14 23:07] VITALS: BP 140/80
--- NOTE | 2017-12-15 08:25 | PN- Housestaff ---
Israel HUGO,Cheryl 12/15/17 0825: Subjective Follow-up For: 1. Acute hypoxemic and hypercarbic respiratory failure 2. COPD exacerbation in the setting of acute bronchitis, no evidence of pneumonia 3. Bilateral LE edema of unclear etiology 4. Essential hypertension 5. Type 2 diabetes 6. CKD stage 3 Subjective: PATIENT FEELING OK TODAY. REQUIRING MORE OXYGEN TODAY. Review of Systems Constitutional: Reports: no symptoms. Cardiovascular: Reports: edema. Respiratory: Reports: short of breath. Gastrointestinal: Reports: no symptoms. Objective Last 24 Hrs of Vital Signs/I&O Vital Signs Date Time Temp Pulse Resp B/P B/P Pulse O2 O2 Flow FiO2 Mean Ox Delivery Rate 12/15 195 86 164/86 12/15 1805 94 Nasal 3.0L Cannula 12/15 1600 94 Nasal 3.0L Cannula 12/15 1407 97.9 101 20 150/82 93 12/15 0830 91 Nasal 3.0L Cannula 12/15 0800 93 Nasal 2.0L Cannula 12/15 0000 Nasal 2.0L Cannula 12/14 2307 98.0 90 20 140/80 92 Nasal Cannula Intake & Output 12/15 1600 12/15 0800 12/15 0000 Intake Total 650 400 Output Total Balance 650 400 Intake, Oral 650 400 Number 0 1 Bowel Movements Physical Exam General Appearance: Alert, Oriented X3, Cooperative, No Acute Distress Skin: No Rashes, No Breakdown, No Significant Lesion Sepsis Skin Exam (color): Normal for Ethnicity HEENT: Atraumatic Cardiovascular: Regular Rate, Normal S1, Normal S2, No Murmurs Lungs: Clear to Auscultation, Normal Air Movement Abdomen: Normal Bowel Sounds, Soft, No Tenderness Neurological: Normal Speech Extremities: No Clubbing, No Cyanosis, Normal Pulses, No Tenderness/Swelling Current Medications: Current Medications Sig/Maya Start time Last Medication Dose Route Stop Time Status Admin Acetaminophen 650 MG Q6P PRN 12/13 2044 AC PO Acetaminophen 1,000 MG Q6P PRN 12/13 2044 AC IV Albuterol Sulfate 3 ML EVERY 4 HRS/AWAKE 12/14 1600 AC 12/15 INH 1805 Amlodipine Besylate 5 MG DAILY 12/15 1753 AC 12/15 PO 1952 Atorvastatin Calcium 20 MG 1700 12/14 1700 AC 12/15 PO 1652 Azithromycin 500 MG DAILY 12/14 1000 AC 12/15 PO 0924 Budesonide/ 2 PUF BID 12/13 2199 AC 12/15 Formoterol Fumarate INH 0925 Guaifenesin 600 MG Q12 12/13 2199 AC 12/15 PO 0924 Heparin Sodium 5,000 UNIT Q8 12/13 2199 AC 12/15 (Porcine) SC 0519 Insulin Aspart 0 TIDAC 12/13 2100 AC 12/15 SC 1658 Ipratropium [place] 2.5 ML EVERY 4 HRS/AWAKE 12/14 1600 AC 12/15 INH 1805 Ipratropium [place] 2.5 ML DAILY 12/13 2044 AC INH Methylprednisolone 40 MG Q12 12/15 2199 AC IV Methylprednisolone 40 MG Q8 12/13 2199 DC 12/15 IV 0519 Last 24 Hrs of Lab/Mc Results Last 24 Hrs of Labs/Mics: Laboratory Tests 12/15/17 0852: Anion Gap 13, Estimated GFR 38 L, BUN/Creatinine Ratio 21.7, CBC w Diff NO MAN DIFF REQ, RBC 4.47 L, MCV 97.2 H, MCH 31.3 H, MCHC 32.2 L, RDW 12.7, MPV 8.0 , Gran % 92.8 H, Lymphocytes % 4.9 L, Monocytes % 2.3, Eosinophils % 0, Basophils % 0, Absolute Granulocytes 11.6 H, Absolute Lymphocytes 0.6 L, Absolute Monocytes 0.3, Absolute Eosinophils 0, Absolute Basophils 0 Assessment/Plan Assessment: This is a 67-year-old male with past medical history significant for hypertension, hyperlipidemia, diabetes mellitus, former smoker, severe obstructive lung disease presented to the emergency room for evaluation of exertional shortness of breath, cough for one week. Vitals afebrile, heart rate 89, respiratory rate 18, blood pressure 160/77, saturating at 99 on 2 L. Pertinent labs CBCs normal, BUN 32, creatinine 1.8 at baseline. Venous BG suggestive of respiratory acidosis. Flu was negative. Chest x-ray positive for pulmonary emphysema. EKG 97, sinus rhythm, left axis deviation 1. Acute hypoxic respiratory failure secondary to COPD exacerbation and acute bronchitis Patient presented with worsening shortness of breath and nonproductive cough for one week. No relief with outpatient management. Patient was tachypneic in the emergency room requiring 2 L oxygen supplementation. He is afebrile with a normal WBC count, chest x-ray negative for consolidation. However he has severe pulmonary emphysema. Possible differentials COPD exacerbation and acute bronchitis given his COPD history versus pneumonia versus pulmonary embolism. However chest x-ray negative for pneumonia and d-dimers were normal. * Admited patient to general medicine for management of COPD exacerbation * monitor vitals every shift * Maintain oxygen saturation ABOVE 88% * Provide oxygen supplementation if necessary * IV methylprednisolone 40 every 8 TAPER STEROIDS TOMORROW PER ATTENDING * Azithromycin 500 mg daily for 5 [id number] effect * The total respiratory care * Mucinex * Inhaler treatments- duonebs * Follow blood culture and sputum culture * Follow-up urine Legionella and strep SPECIMEN NOT RECEIVED * Flu negative * Pulmonary consult follow up with Dr. Mathews * pulmonary function tests in 2015 showed severe obstructive disease with a reversible component However patient is not aware of COPD. Never followed up with any studio set up worker as an outpatient. PATIENT NEEDS TO DO OUTPATIENT PFTS AND SLEEP STUDY Hypertension Patient takes amlodipine 10 mg daily at home for high blood pressure. However because of worsening lower extremity swelling will hold amlodipine for now. WE RESTARTED AMLODIPINE 5MG TODAY. * Consider cardio consult for lower extremity swelling and blood pressure management Bilateral lower extremity swelling Patient has +3 bilateral pitting edema. Never followed up with any barrel washer. Will get echocardiogram. * Follow-up echocardiogram * U/S to rule out DVT shows no DVT. Hyperlipidemia-continue Lipitor 20 mg daily [id number] and insulin sliding scale. Hold metformin in the hospital. PENDING HBA1C. Chronic kidney disease 3 from diabetes and hypertension-1.8 creatinine at baseline. DVT prophylaxis subcutaneous heparin Regular diet Full code Problem List: 1. COPD exacerbation 2. Chronic kidney disease Pain Ratin Pain Location: NA Pain Goal: Remain pain free Pain Plan: NA Tomorrow's Labs & Rationales: CBC BEP Broderick HUGO,[place] 12/15/17 1252: Attending MD Review Statement Attending Statement Attending MD Statement: examined this patient, discuss w/resident/PA/GUT CARRIER, agreed w/resident/PA/GUT CARRIER, discussed with family, reviewed EMR data (avail), discussed with nursing, discussed with case mgmt, reviewed images, amended to note Attending Assessment/Plan: Patient seen and examined, overall feels better. Denies any shortness of breath at rest but still has some dyspnea on exertion. Lower extremity swelling seems to be slightly improved. Vital Signs Date Time Temp Pulse Resp B/P B/P Pulse O2 O2 Flow FiO2 Mean Ox Delivery Rate 12/15 0830 91 Nasal 3.0L Cannula 12/15 0000 Nasal 2.0L Cannula 12/14 2307 98.0 90 20 140/80 92 Nasal Cannula 12/14 202 92 Nasal 3.0L Cannula 12/14 1710 91 Nasal 2.0L Cannula 12/14 1600 90 Nasal 2.0L Cannula 12/14 1457 Nasal 3.0L Cannula 12/14 1407 97.7 103 24 160/80 96 on exam: aox,3, nad. cv; s1,s2, rrr resp; mild scattered wheeze abd; soft, nt, bs+ ext; 2+ edema with some wrinkling. Laboratory Tests 12/15 08 Chemistry Sodium (137 - 145 mmol/L) 139 Potassium (3.5 - 5.1 mmol/L) 4.7 Chloride (98 - 107 mmol/L) 98 Carbon Dioxide (22 - 30 mmol/L) 28 Anion Gap (5 - 16) 13 BUN (9 - 20 mg/dL) 39 H Creatinine (0.7 - 1.2 mg/dL) 1.8 H Estimated GFR (>60 ml/min) 38 L BUN/Creatinine Ratio (7 - 25 %) 21.7 Hematology CBC w Diff NO MAN DIFF REQ WBC (4.8 - 10.8 /CUMM) 12.5 H RBC (4.70 - 6.10 /CUMM) 4.47 L Hgb (14.0 - 18.0 G/DL) 14.0 Hct (42 - 52 %) 43.5 MCV (80.0 - 94.0 FL) 97.2 H MCH (27.0 - 31.0 PG) 31.3 H MCHC (33.0 - 37.0 G/DL) 32.2 L RDW (11.5 - 14.5 %) 12.7 Plt Count (130 - 400 /CUMM) 358 MPV (7.4 - 10.4 FL) 8.0 Gran % (42.2 - 75.2 %) 92.8 H Lymphocytes % (20.5 - 51.1 %) 4.9 L Monocytes % (1.7 - 9.3 %) 2.3 Eosinophils % (0 - 5 %) 0 Basophils % (0.0 - 2.0 %) 0 Absolute Granulocytes (1.4 - 6.5 /CUMM) 11.6 H Absolute Lymphocytes (1.2 - 3.4 /CUMM) 0.6 L Absolute Monocytes (0.10 - 0.60 /CUMM) 0.3 Absolute Eosinophils (0.0 - 0.7 /CUMM) 0 Absolute Basophils (0.0 - 0.2 /CUMM) 0 A/P; 67-year-old male with obesity, hypertension, diabetes, chronic kidney disease stage III admitted with shortness of breath likely secondary to acute bronchitis. Patient also has bilateral lower extremity edema. Patient with bilateral lower extremity ultrasound as well as echo cardio [place]. Please resume his Norvasc at 5 mg by mouth daily. Secondary to his chronic kidney disease, we cannot start him on any diuretic or DOLLY inhibitor at this time. Patient has COPD therefore beta kelly cannot be used at present. Therefore we need to start him on Norvasc to control his blood pressure. Taper IV steroids. Likely tomorrow he can be switched to by mouth prednisone. Continue azithromycin. DVT prophylaxis: Heparin subcutaneous. Patient wants note for his work at the time discharge.
[2017-12-15 09:22] LABS: ABSOLUTE BASOPHIL COUNT 0 /CUMM (0.0-0.2); ABSOLUTE EOSINOPHIL COUNT 0 /CUMM (0.0-0.7); ABSOLUTE GRANULOCYTE CT 11.6 /CUMM (1.4-6.5); ABSOLUTE MONOCYTE COUNT 0.3 /CUMM (0.10-0.60)
[2017-12-15 09:46] LABS: ABSOLUTE LYMPH COUNT 0.6 /CUMM (1.2-3.4); BASOPHIL % 0 % (0.0-2.0); EOSINOPHIL % 0 % (0-5); GRANULOCYTE % 92.8 % (42.2-75.2); HEMATOCRIT 43.5 % (42-52); MEAN CORPUSCULAR HGB 31.3 PG (27.0-31.0); MEAN CORPUSCULAR HGB CONC 32.2 G/DL (33.0-37.0); MEAN CORPUSCULAR VOLUME 97.2 FL (80.0-94.0); PLATELET COUNT 358 /CUMM (130-400); RBC DISTRIBUTION WIDTH 12.7 % (11.5-14.5); RED BLOOD CELL CT 4.47 /CUMM (4.70-6.10)
--- NOTE | 2017-12-15 10:44 | PN- Pulmonary ---
Subjective HPI/Critical Care Issues: Patient remains comfortable on room air Objective Current Medications: Current Medications Sig/Maya Start time Last Medication Dose Route Stop Time Status Admin Acetaminophen 650 MG Q6P PRN 12/13 2044 AC PO Acetaminophen 1,000 MG Q6P PRN 12/13 2044 AC IV Albuterol Sulfate 3 ML EVERY 4 HRS/AWAKE 12/14 1600 AC 12/15 INH 0831 Albuterol Sulfate 3 ML Q6P PRN 12/13 2100 DC INH Atorvastatin Calcium 20 MG 1700 12/14 1700 AC 12/14 PO 1842 Azithromycin 500 MG DAILY 12/14 1000 AC 12/15 PO 0924 Budesonide/ 2 PUF BID 12/13 2200 AC 12/15 Formoterol Fumarate INH 0925 Guaifenesin 600 MG Q12 12/13 2200 AC 12/15 PO 0924 Heparin Sodium 5,000 UNIT Q8 12/13 2200 AC 12/15 (Porcine) SC 0519 Insulin Aspart 0 TIDAC 12/13 2100 AC 12/15 SC 0819 Ipratropium [place] 2.5 ML EVERY 4 HRS/AWAKE 12/14 1600 AC 12/15 INH 0831 Ipratropium [place] 2.5 ML DAILY 12/13 2044 AC INH Methylprednisolone 40 MG Q8 12/13 2200 AC 12/15 IV 0519 Vital Signs & I&O Last 24 Hrs of Vitals and I&O: Vital Signs Date Time Temp Pulse Resp B/P B/P Pulse O2 O2 Flow FiO2 Mean Ox Delivery Rate 12/15 0000 Nasal 2.0L Cannula 12/14 2307 98.0 90 20 140/80 92 Nasal Cannula 12/14 2021 92 Nasal 3.0L Cannula 12/14 1710 91 Nasal 2.0L Cannula 12/14 1600 90 Nasal 2.0L Cannula 12/14 1457 Nasal 3.0L Cannula 12/14 1407 97.7 103 24 160/80 96 Intake & Output 12/15 1600 12/15 0800 12/15 0000 Intake Total 400 Output Total Balance 400 Intake, Oral 400 Number 1 Bowel Movements Oxygen saturations 2 L 92% exam of his chest shows diminished breath sounds are no wheezes cardiac exam shows regular S1 and S2 without murmurs Impression/Plan Impression/Plan Impression/Plan: 67-year-old with severe COPD on prior pulmonary function tests admitted with increasing shortness of breath and increasing leg edema. He has history of snoring and there is a high index of suspicion of sleep apnea. He likely has exacerbation of COPD complicated by possible pulmonary hypertension from untreated sleep apnea lower extremity edema either due to antihypertensives or pulmonary hypertension await cardiac ultrasound Recommendations: Assess oxygen saturation with ambulation. She should have outpatient follow-up PFTs and sleep study. Change sputum C&S. DVT prophylaxis. Continue current pulmonary regimen. Management of his blood pressure per primary care team. Await cardiac ultrasound DC IV Solu-Medrol begin by mouth prednisone
[2017-12-15 11:32] LABS: WHITE BLOOD CELL COUNT 12.5 /CUMM (4.8-10.8)
[2017-12-15 14:07] VITALS: BP 150/82
--- NOTE | 2017-12-15 16:37 | ULTRASOUND REPORT ---
EXAMINATION: US TRIPLEX OF LOWER EXTREMITIES, BILATERAL CLINICAL INFORMATION: Bilateral lower extremity swelling COMPARISON: None TECHNIQUE: Color-flow triplex imaging with spectral analysis and compression Doppler were performed on the lower extremities. FINDINGS: Respiratory variation, normal compression and augmented flow are noted throughout the lower extremities. The visualized common femoral vein, superficial femoral vein, profunda femoral vein, popliteal vein and midcalf peroneal and posterior tibial venous segments show no evidence of deep venous thrombosis. There are small bilateral Marc's cysts measuring 2.5 x 0.5 x 1.2 cm on the right and 1 x 0.4 x 0.7 cm on the left. IMPRESSION: Normal triplex scan without evidence of deep venous thrombosis involving the lower extremities. Small bilateral Marc's cysts.
--- NOTE | 2017-12-15 19:47 | ECHOCARDIOGRAM REPORT ---
ELADIO CARVALHO Age: 67 : 1950 Gender: M Exam Date: 12/15/2017 10:55 Exam Location: [place] Ht (in): 68 Wt (lb): 250 BSA: 2.38 BP: 140 / 80 Ordering Physician: Lena Edwards MD Referring Physician: Lena Edwards MD Technologist: Addis Mahan [facility] Room Number: 229-01 Indications: HEART FAILURE Rhythm: Sinus Technical Quality: fair FINDINGS Left Ventricle Normal size left ventricle. Left ventricular wall thickness at upper limits of normal. Normal left ventricular ejection fraction estimated at 60-65%. Right Ventricle Normal right ventricular size and function. Right Atrium Normal right atrial size. Left Atrium Normal left atrial size. Mitral Valve Mild mitral annular calcification. Trace to mild mitral regurgitation. Aortic Valve Aortic valve is normal in structure and function. Tricuspid Valve Tricuspid valve is normal in structure and function. Trace tricuspid regurgitation. Pulmonic Valve Pulmonic valve not well visualized, grossly normal. Pericardium No pericardial effusion. Great Vessels Normal size aortic root. CONCLUSIONS Normal left and right ventricular systolic function. Borderline LVH. No significant valvular abnormalities. Migel Sewell M.D. (Electronically Signed) Final Date: 15 December 2017 19:46 MEASUREMENTS (Male / Female) Normal Values 2D ECHO LV Diastolic Diameter PLAX 5.2 cm 4.2 - 5.9 / 3.9 - 5.3 cm LV Systolic Diameter PLAX 2.5 cm 2.1 - 4.0 cm LV Fractional Shortening PLAX 51.9 % 25 - 46 % LV Ejection Fraction 2D Teich 82.8 % IVS Diastolic Thickness 1.1 cm LVPW Diastolic Thickness 1.2 cm LV Relative Wall Thickness 0.4 RV Internal Dim ED PLAX 3.0 cm 1.9 - 3.8 cm LVOT Diameter 2.2 cm Aortic Root Diameter 3.1 cm LA Systolic Diameter LX 2.9 cm 3.0 - 4.0 / 2.7 - 3.8 cm LA Volume 32.0 cm 18 - 58 / 22 - 52 cm DOPPLER AV Peak Velocity 178.0 cm/s AV Peak Gradient 12.7 mmHg AV Mean Velocity 134.0 cm/s AV Mean Gradient 8.0 mmHg AV Velocity Time Integral 37.7 cm LVOT Peak Velocity 147.0 cm/s LVOT Peak Gradient 8.6 mmHg LVOT Mean Velocity 103.0 cm/s LVOT Mean Gradient 5.0 mmHg LVOT Velocity Time Integral 29.9 cm LVOT Stroke Volume 113.7 cm AV Area Cont Eq vti 3.0 cm AV Area Cont Eq pk 3.1 cm MV Peak Velocity 131.0 cm/s MV Peak Gradient 6.9 mmHg MV Mean Velocity 85.1 cm/s MV Mean Gradient 3.0 mmHg Mitral E Point Velocity 95.6 cm/s Mitral A Point Velocity 136.0 cm/s Mitral E to A Ratio 0.7 MV PHT Velocity 101.0 cm/s MV Deceleration [place] 290.0 cm/s MV Pressure Half Time 104.5 ms MV Area PHT 2.1 cm MV Deceleration Time 314.0 ms PV Peak Velocity 117.0 cm/s PV Peak Gradient 5.5 mmHg PV Mean Velocity 75.5 cm/s PV Mean Gradient 3.0 mmHg PV Velocity Time Integral 16.6 cm LV E' Lateral Velocity 14.3 cm/s Mitral E to LV E' Lateral Ratio 6.7 LV E' Septal Velocity 8.8 cm/s Mitral E to LV E' Septal Ratio 10.9
[2017-12-15 22:47] VITALS: BP 146/80
[2017-12-16 07:15] VITALS: BP 146/84
--- NOTE | 2017-12-16 07:26 | PN- Housestaff ---
Vadim HUGO,[facility] 12/16/17 0726: Subjective Follow-up For: copd/emphysema Subjective: No acute events overnight. States SOB is slightly better. Would like to be discharged today. Review of Systems Constitutional: Reports: no symptoms. Cardiovascular: Reports: no symptoms. Respiratory: Reports: short of breath. Gastrointestinal: Reports: no symptoms. Genitourinary: Reports: no symptoms. Musculoskeletal: Reports: no symptoms. Objective Last 24 Hrs of Vital Signs/I&O Vital Signs Date Time Temp Pulse Resp B/P B/P Pulse O2 O2 Flow FiO2 Mean Ox Delivery Rate 12/16 1635 95 Nasal 2.0L Cannula 12/16 1600 95 Nasal 2.0L Cannula 12/16 1408 98.2 92 20 164/80 92 Nasal 2.0L Cannula 12/16 1228 148/78 12/16 1024 90 140/84 12/16 0818 93 Nasal 3.0L Cannula 12/16 0800 93 Nasal 3.0L Cannula 12/16 0715 97.8 90 20 146/84 95 Nasal 3.0L Cannula 12/16 0000 97 Nasal 3.0L Cannula 12/15 2247 98.0 86 20 146/80 97 Nasal 3.0L Cannula Intake & Output 12/16 1600 12/16 0800 12/16 0000 Intake Total 600 0 400 Output Total Balance 600 0 400 Intake, IV 0 Intake, Oral 600 0 400 Number 0 Bowel Movements Physical Exam General Appearance: Alert, Oriented X3, Cooperative, No Acute Distress Skin Temp/Moisture Exam: Warm/Dry Cardiovascular: Regular Rate, Normal S1, Normal S2 Lungs: Clear to Auscultation, Normal Air Movement Abdomen: Normal Bowel Sounds, Soft, No Tenderness Extremities: 2+ radial pulses Current Medications: Current Medications Sig/Maya Start time Last Medication Dose Route Stop Time Status Admin Acetaminophen 650 MG Q6P PRN 12/13 2044 AC PO Acetaminophen 1,000 MG Q6P PRN 12/13 2044 AC IV Albuterol Sulfate 3 ML EVERY 4 HRS/AWAKE 12/14 1600 12/16 INH 2030 Amlodipine Besylate 5 MG DAILY 12/15 1753 AC 12/16 PO 1024 Atorvastatin Calcium 20 MG 1700 12/14 1700 12/16 PO 1746 Azithromycin 500 MG DAILY 12/14 1000 AC 12/16 PO 1023 Budesonide/ 2 PUF BID 12/13 2200 12/16 Formoterol Fumarate INH 2107 Guaifenesin 600 MG Q12 12/130 AC 12/16 PO 2107 Heparin Sodium 5,000 UNIT Q8 12/13 2199 AC 12/16 (Porcine) SC 210 Insulin Aspart 0 TIDAC 12/13 2100 AC 12/16 SC 1746 Ipratropium [place] 2.5 ML EVERY 4 HRS/AWAKE 12/14 1600 AC 12/16 INH 2030 Ipratropium [place] 2.5 ML DAILY 12/13 2044 DC INH Losartan Potassium 25 MG DAILY 12/16 1030 AC 12/16 PO 1228 Methylprednisolone 40 MG Q12 12/15 2199 DC 12/15 IV 2203 Prednisone 10 MG DAILY 12/22 1000 AC PO 12/24 0959 Prednisone 20 MG DAILY 12/20 1000 AC PO 12/22 0959 Prednisone 30 MG DAILY 12/18 1000 AC PO 12/20 0959 Prednisone 40 MG DAILY 12/16 1000 CAN PO 12/24 0959 Prednisone 40 MG DAILY 12/16 1000 AC 12/16 PO 12/18 0959 1023 Last 24 Hrs of Lab/Mc Results Last 24 Hrs of Labs/Mics: Laboratory Tests 12/16/17 1030: Anion Gap 13, Estimated GFR 41 L, BUN/Creatinine Ratio 25.3 H, CBC w Diff NO MAN DIFF REQ, RBC 4.54 L, MCV 94.4 H, MCH 32.2 H, MCHC 34.1, RDW 12.4, MPV 7.6, Gran % 92.6 H, Lymphocytes % 3.9 L, Monocytes % 3.3, Eosinophils % 0, Basophils % 0.2, Absolute Granulocytes 11.1 H, Absolute Lymphocytes 0.5 L, Absolute Monocytes 0.4, Absolute Eosinophils 0, Absolute Basophils 0 Microbiology 12/16 1020 LOWER RESP: Respiratory Culture - COLB 12/16 1020 LOWER RESP: Gram Stain - COLB 12/16 0750 URINE ROUT: Legionella Antigen - COLB 12/16 075 URINE ROUT: Streptococcus pneumoniae Antigen (M - COLB Assessment/Plan Assessment: 67 yo M pmhx of htn, hld, diabetes, [id number] smoking history but quit 12 years ago presenting for shortness of breath with exertion most likely due to COPD exacerbation. #COPD Remains afebrile WBC 9.9 -> 12.0 Troponin less than 0.01 Lactic acid 1.9 VBG: bicarb 31, ph 7.3, pc02 63, o2 sat 35/61%, carboxy hemoglobin 1.2 Rapid flu negative CXR: emphysema Bnp 295 Received IV methylprednisone, azithromycin, albuterol x1 Echo: Normal left and right ventricular systolic function. Borderline LVH. No significant valvular abnormalities. -cont prednisone taper -f/u urinary strep and legionella -cont trc nebs, symbicort, Mucinex -cont azithromycin -outpatient follow-up PFTs and sleep study. discharge with spiriva and symbicort and possibly home o2 if needed -ambulating O2 sats for discharge, pt may need home o2 #B/L LE edema venous doppler negative echo: normal LV and RV function Total protein 7.2 (normal) -could possibly be from the CKD, cont to monitor #ckd Cr 1.7 -stable, cont to monitor #htn BP still 164/80 despite restarting valsartan Will monitor as patient has CKD. Unable to give another CCB due to LE swelling or B-kelly due to COPD. -cont amlodipine, valsartan -monitor renal function #hld -cont atorvastatin #diabetes -novolog sliding scale #DVT prophylaxis -Heparin #full code Problem List: 1. COPD exacerbation 2. Leg edema 3. CKD (chronic kidney disease) 4. HTN (hypertension) Pain Ratin Pain Location: none Pain Goal: Pain 4 or less Pain Plan: pain pathway Tomorrow's Labs & Rationales: cbc bep Michel Rubio 12/16/17 1413: Attending MD Review Statement Attending Statement Attending MD Statement: examined this patient, discuss w/resident/PA/PRACTICE ARCHITECT, agreed w/resident/PA/PRACTICE ARCHITECT, discussed with family, reviewed EMR data (avail), discussed with nursing, discussed with case mgmt, reviewed images, amended to note Attending Assessment/Plan: A/P; 67-year-old male with obesity, hypertension, diabetes, chronic kidney disease stage III admitted with shortness of breath likely secondary to acute bronchitis and COPD exacerbation. Patient is tapered on steroids, requrirng oxygen supplementation, bronchodilators. Check walking pulse oximetry at discharge to assess need of home oxygen. Patient to follow up with PCP in 3-5 days of discharge and Pulmonary in 1-2 weeks of discharge. Plan of care d/wed patient who verbalised the understanding.
--- NOTE | 2017-12-16 08:11 | PN- Pulmonary ---
Subjective HPI/Critical Care Issues: Patient feels better however is on supplemental nasal oxygen Objective Current Medications: Current Medications Sig/Maya Start time Last Medication Dose Route Stop Time Status Admin Acetaminophen 650 MG Q6P PRN 12/13 2044 AC PO Acetaminophen 1,000 MG Q6P PRN 12/13 2044 AC IV Albuterol Sulfate 3 ML EVERY 4 HRS/AWAKE 12/14 1600 AC 12/15 INH 2145 Amlodipine Besylate 5 MG DAILY 12/15 1753 AC 12/15 PO 1952 Atorvastatin Calcium 20 MG 1700 12/14 1700 AC 12/15 PO 1652 Azithromycin 500 MG DAILY 12/14 1000 AC 12/15 PO 0924 Budesonide/ 2 PUF BID 12/13 2200 AC 12/15 Formoterol Fumarate INH 2202 Guaifenesin 600 MG Q12 12/13 2200 AC 12/15 PO 2204 Heparin Sodium 5,000 UNIT Q8 12/13 2200 AC 12/16 (Porcine) SC 0552 Insulin Aspart 0 TIDAC 12/13 2100 AC 12/15 SC 1658 Ipratropium [place] 2.5 ML EVERY 4 HRS/AWAKE 12/14 1600 AC 12/15 INH 2145 Ipratropium [place] 2.5 ML DAILY 12/13 2044 AC INH Methylprednisolone 40 MG Q12 12/15 2200 DC 12/15 IV 2203 Methylprednisolone 40 MG Q8 12/13 2200 DC 12/15 IV 0519 Prednisone 40 MG DAILY 12/16 1000 UNVr PO 12/24 0959 Vital Signs & I&O Last 24 Hrs of Vitals and I&O: Vital Signs Date Time Temp Pulse Resp B/P B/P Pulse O2 O2 Flow FiO2 Mean Ox Delivery Rate 12/16 0715 97.8 90 20 146/84 95 Nasal 3.0L Cannula 12/16 0000 97 Nasal 3.0L Cannula 12/15 2247 98.0 86 20 146/80 97 Nasal 3.0L Cannula 12/15 1952 86 164/86 12/15 1805 94 Nasal 3.0L Cannula 12/15 1600 94 Nasal 3.0L Cannula 12/15 1407 97.9 101 20 150/82 93 12/15 0830 91 Nasal 3.0L Cannula Intake & Output 12/16 1600 12/16 0800 12/16 0000 Intake Total 0 400 Output Total Balance 0 400 Intake, IV 0 Intake, Oral 0 400 Number 0 Bowel Movements Since saturation 3 L 95-97% exam of his chest shows diminished breath sounds no wheezes or crackles cardiac exam shows a regular S1 and S2 without murmur there is persistent edema Impression/Plan Impression/Plan Impression/Plan: 67-year-old with severe COPD on prior pulmonary function tests admitted with increasing shortness of breath and increasing leg edema. He has history of snoring and there is a high index of suspicion of sleep apnea. Patient feels clinically improved. Prior pulmonary function tests showed exercise induced desaturation. He will likely need low-flow oxygen at discharge Recommendations: Assess oxygen saturation with ambulation. She should have outpatient follow-up PFTs and sleep study. Change sputum C&S. DVT prophylaxis. Continue current pulmonary regimen. Management of his blood pressure per primary care team. Await cardiac ultrasound DC IV Solu-Medrol begin by mouth prednisone taper FiO2 to maintain saturation of 92% or greater patient will be seen in the office for follow-up PFTs and sleep study. Discharge bronchodilator regimen of Symbicort and Spiriva
[2017-12-16 10:32] LABS: ABSOLUTE BASOPHIL COUNT 0 /CUMM (0.0-0.2); ABSOLUTE EOSINOPHIL COUNT 0 /CUMM (0.0-0.7); ABSOLUTE GRANULOCYTE CT 11.1 /CUMM (1.4-6.5); ABSOLUTE LYMPH COUNT 0.5 /CUMM (1.2-3.4); ABSOLUTE MONOCYTE COUNT 0.4 /CUMM (0.10-0.60); BASOPHIL % 0.2 % (0.0-2.0); EOSINOPHIL % 0 % (0-5); HEMATOCRIT 42.8 % (42-52); MEAN CORPUSCULAR HGB 32.2 PG (27.0-31.0); MEAN CORPUSCULAR HGB CONC 34.1 G/DL (33.0-37.0); MEAN CORPUSCULAR VOLUME 94.4 FL (80.0-94.0); MEAN PLATELET VOLUME 7.6 FL (7.4-10.4); RBC DISTRIBUTION WIDTH 12.4 % (11.5-14.5); RED BLOOD CELL CT 4.54 /CUMM (4.70-6.10)
[2017-12-16 10:54] LABS: GRANULOCYTE % 92.6 % (42.2-75.2); PLATELET COUNT 387 /CUMM (130-400)
[2017-12-16 14:08] VITALS: BP 164/80
[2017-12-16 22:22] VITALS: BP 160/76
[2017-12-17 07:03] VITALS: BP 148/82
--- NOTE | 2017-12-17 08:22 | PN- Housestaff ---
Claudette Olivares 12/17/17 0819: Subjective Follow-up For: COPD exacerbation HTN CKD Subjective: No overnight event. Patient was breathing well underg 1LNC. Stated that he could ambulate himself. He ambulated without O2 yesterday and dropped below 90% without O2. Willing to try again today. Review of Systems Constitutional: Reports: see HPI. Objective Last 24 Hrs of Vital Signs/I&O Vital Signs Date Time Temp Pulse Resp B/P B/P Pulse O2 O2 Flow FiO2 Mean Ox Delivery Rate 12/17 0703 97.6 84 20 148/82 91 Nasal 1.0L Cannula 12/17 0000 Nasal 1.0L Cannula 12/16 2222 97.7 98 22 160/76 93 Nasal Cannula 12/16 1635 95 Nasal 2.0L Cannula 12/16 1600 95 Nasal 2.0L Cannula 12/16 1408 98.2 92 20 164/80 92 Nasal 2.0L Cannula 12/16 1228 148/78 12/16 1024 90 140/84 Intake & Output 12/17 1600 12/17 0800 12/17 0000 Intake Total 600 150 Output Total Balance 600 150 Intake, IV 10 Intake, Oral 600 140 Physical Exam General Appearance: Alert, Oriented X3, Cooperative, No Acute Distress Cardiovascular: Regular Rate Lungs: Clear to Auscultation, Normal Air Movement Abdomen: Normal Bowel Sounds, Soft, No Tenderness Extremities: Normal Pulses, +1 edema, pt stated from HTN meds Current Medications: Current Medications Sig/Maya Start time Last Medication Dose Route Stop Time Status Admin Acetaminophen 650 MG Q6P PRN 12/13 2044 AC PO Acetaminophen 1,000 MG Q6P PRN 12/13 2044 AC IV Albuterol Sulfate 3 ML EVERY 4 HRS/AWAKE 12/14 1600 AC 12/16 INH 2030 Amlodipine Besylate 5 MG DAILY 12/15 1753 AC 12/16 PO 1024 Atorvastatin Calcium 20 MG 1700 12/14 1700 AC 12/16 PO 1746 Azithromycin 500 MG DAILY 12/14 1000 AC 12/16 PO 1023 Budesonide/ 2 PUF BID 12/13 220 AC 12/16 Formoterol Fumarate INH 2108 Guaifenesin 600 MG Q12 12/13 2200 AC 12/16 PO 2107 Heparin Sodium 5,000 UNIT Q8 12/13 2200 AC 12/17 (Porcine) SC 0650 Insulin Aspart 0 TIDAC 12/13 2100 AC 12/16 SC 1746 Ipratropium [place] 2.5 ML EVERY 4 HRS/AWAKE 12/14 1600 AC 12/16 INH 2030 Ipratropium [place] 2.5 ML DAILY 12/13 2044 DC INH Losartan Potassium 25 MG DAILY 12/16 1030 AC 12/16 PO 1228 Prednisone 10 MG DAILY 12/22 1000 AC PO 12/24 0959 Prednisone 20 MG DAILY 12/20 1000 AC PO 12/22 0959 Prednisone 30 MG DAILY 12/18 1000 AC PO 12/20 0959 Prednisone 40 MG DAILY 12/16 1000 AC 12/16 PO 12/18 0959 1023 Last 24 Hrs of Lab/Mc Results Last 24 Hrs of Labs/Mics: Laboratory Tests 12/16/17 1030: Anion Gap 13, Estimated GFR 41 L, BUN/Creatinine Ratio 25.3 H, CBC w Diff NO MAN DIFF REQ, RBC 4.54 L, MCV 94.4 H, MCH 32.2 H, MCHC 34.1, RDW 12.4, MPV 7.6, Gran % 92.6 H, Lymphocytes % 3.9 L, Monocytes % 3.3, Eosinophils % 0, Basophils % 0.2, Absolute Granulocytes 11.1 H, Absolute Lymphocytes 0.5 L, Absolute Monocytes 0.4, Absolute Eosinophils 0, Absolute Basophils 0 Microbiology 12/16 1020 LOWER RESP: Respiratory Culture - COLB 12/16 1020 LOWER RESP: Gram Stain - COLB Assessment/Plan Assessment: 67 yo M pmhx of htn, hld, diabetes, [id number] smoking history but quit 12 years ago presenting for shortness of breath with exertion most likely due to COPD exacerbation. #COPD Remains afebrile WBC 9.9 -> 11.9 on steroid, afebrile. Troponin less than 0.01 Lactic acid 1.9 VBG: bicarb 31, ph 7.3, pc02 63, o2 sat 35/61%, carboxy hemoglobin 1.2 Rapid flu negative CXR: emphysema Bnp 295 Received IV methylprednisone, azithromycin, albuterol x1 Echo: Normal left and right ventricular systolic function. Borderline LVH. No significant valvular abnormalities. -cont prednisone taper after discharge. -f/u urinary strep and legionella -cont trc nebs, symbicort, Mucinex -cont azithromycin, currently day 4. Would discharge with 1-day of zithromax 250mg. -outpatient follow-up PFTs and sleep study. discharge with spiriva and symbicort and possibly home o2 if needed -ambulating O2 sats dropped down to 82% under RA. patient is arranged for home oxygen by embedded case manager. #B/L LE edema venous doppler negative echo: normal LV and RV function Total protein 7.2 (normal) -could possibly be from the CKD, cont to monitor #ckd Cr 1.7 -stable, cont to monitor #htn BP still 150/82 despite restarting valsartan Will monitor as patient has CKD. Unable to give another CCB due to LE swelling or B-kelly due to COPD. -cont amlodipine, valsartan -monitor renal function #hld -cont atorvastatin #diabetes -novolog sliding scale #DVT prophylaxis -Heparin #full code Diabetic CC2 diet Problem List: 1. CKD (chronic kidney disease) 2. HTN (hypertension) 3. Leg edema 4. COPD exacerbation Pain Ratin Pain Location: NA Pain Goal: Remain pain free Pain Plan: see AP Tomorrow's Labs & Rationales: Michel Hopkins 12/17/17 1218: Attending MD Review Statement Attending Statement Attending MD Statement: examined this patient, discuss w/resident/PA/MARINE RADIO INSTALLER AND SERVICER, agreed w/resident/PA/MARINE RADIO INSTALLER AND SERVICER, discussed with family, reviewed EMR data (avail), discussed with nursing, discussed with case mgmt, reviewed images, amended to note Attending Assessment/Plan: A/P; 67-year-old male with obesity and questionable NICOLE, hypertension, diabetes, chronic kidney disease stage III admitted with shortness of breath likely secondary to acute bronchitis and COPD exacerbation. Patient is tapered on steroids, requrirng oxygen supplementation, bronchodilators. Check walking pulse oximetry at discharge to assess need of home oxygen. Patient desaturates with walking and therefore need home oxygen at discharge. Patient to follow up with PCP in 3-5 days of discharge and Pulmonary in 1-2 weeks of discharge for outpatient sleep studies probable NICOLE. Plan of care d/wed patient who verbalised the understanding.
--- NOTE | 2017-12-17 08:39 | PN- Pulmonary ---
Subjective HPI/Critical Care Issues: Patient feels well on low-flow oxygen he reportedly desaturated with ambulation yesterday. Cardiac ultrasound does not demonstrate pulmonary hypertension Objective Current Medications: Current Medications Sig/Maya Start time Last Medication Dose Route Stop Time Status Admin Acetaminophen 650 MG Q6P PRN 12/13 2044 AC PO Acetaminophen 1,000 MG Q6P PRN 12/13 2044 AC IV Albuterol Sulfate 3 ML EVERY 4 HRS/AWAKE 12/14 1600 AC 12/16 INH 2030 Amlodipine Besylate 5 MG DAILY 12/15 1753 AC 12/16 PO 1024 Atorvastatin Calcium 20 MG 1700 12/14 1700 AC 12/16 PO 1746 Azithromycin 500 MG DAILY 12/14 1000 AC 12/16 PO 1023 Budesonide/ 2 PUF BID 12/13 2200 AC 12/16 Formoterol Fumarate INH 2108 Guaifenesin 600 MG Q12 12/13 2200 AC 12/16 PO 2107 Heparin Sodium 5,000 UNIT Q8 12/13 2200 AC 12/17 (Porcine) SC 0650 Insulin Aspart 0 TIDAC 12/13 2100 AC 12/16 SC 1746 Ipratropium [place] 2.5 ML EVERY 4 HRS/AWAKE 12/14 1600 AC 12/16 INH 2030 Ipratropium [place] 2.5 ML DAILY 12/13 204 DC INH Losartan Potassium 25 MG DAILY 12/16 1030 AC 12/16 PO 1228 Prednisone 10 MG DAILY 12/22 1000 AC PO 12/24 0959 Prednisone 20 MG DAILY 12/20 1000 AC PO 12/22 0959 Prednisone 30 MG DAILY 12/18 1000 AC PO 12/20 0959 Prednisone 40 MG DAILY 12/16 1000 AC 12/16 PO 12/18 0959 1023 Vital Signs & I&O Last 24 Hrs of Vitals and I&O: Vital Signs Date Time Temp Pulse Resp B/P B/P Pulse O2 O2 Flow FiO2 Mean Ox Delivery Rate 12/17 0703 97.6 84 20 148/82 91 Nasal 1.0L Cannula 12/17 0000 Nasal 1.0L Cannula 12/16 2222 97.7 98 22 160/76 93 Nasal Cannula 12/16 1635 95 Nasal 2.0L Cannula 12/16 1600 95 Nasal 2.0L Cannula 12/16 1408 98.2 92 20 164/80 92 Nasal 2.0L Cannula 12/16 1228 148/78 12/16 1024 90 140/84 Intake & Output 12/17 1600 12/17 0800 12/17 0000 Intake Total 600 150 Output Total Balance 600 150 Intake, IV 10 Intake, Oral 600 140 Since saturation 1 L 91% exam of his chest shows diminished breath sounds are no wheezes or crackles cardiac exam shows regular S1 and S2 there appears to be decreased edema Impression/Plan Impression/Plan Impression/Plan: 67-year-old with severe COPD on prior pulmonary function tests admitted with increasing shortness of breath and increasing leg edema. He has history of snoring and there is a high index of suspicion of sleep apnea. Patient feels clinically improved. Prior pulmonary function tests showed exercise induced desaturation. He will likely need low-flow oxygen at discharge continue low- flow oxygen at discharge and arrange for outpatient pulmonary follow-up in my office for PFTs and sleep study Recommendations: Discharge on low-flow oxygen. Outpatient follow-up for PFTs and sleep study. Continue bronchodilator regimen. Taper prednisone.
--- NOTE | 2017-12-17 09:59 | Patient Discharge Instructions ---
Discharge Instructions General Discharge Information You were seen/treated for: COPD Exacerbation Hypertension Diabetes Chronic Kidney Disease Special Instructions: - Please follow up with Dr. Mathews for your pulmonary function test and further evaluation of your lung conditions. - Please continue to use home oxygen. - Please follow up with your primary care physician within 1-2 week of discharge. Inform your primary care physician of this admission to [facility]. - Continue your current medications per discharge instructions. - Please watch for these problems: Fever, Chills, Nausea, Vomiting, Shortness of Breath, Productive Cough, Chest Pain/Discomfort, Abdominal Pain, Active Bleeding or Bloody urine/stool. Diet Continue normal diet: Yes Recommended Diet: Diabetic Activity Full Activity/No Limits: Yes Acute Coronary Syndrome Inclusion Criteria At DC or during hospital stay patient has or had the following: ACS DIAGNOSIS No Discharge Core Measures Meds if any: Prescribed or Continued at Discharge Meds if any: NOT Prescribed or Continued at Discharge Congestive Heart Failure Inclusion Criteria At DC or during hospital stay patient has or had the following: CHF DIAGNOSIS No Discharge Core Measures Meds if any: Prescribed or Continued at Discharge Meds if any: NOT Prescribed or Continued at Discharge Cerebrovascular accident Inclusion Criteria At DC or during hospital stay patient has or had the following: CVA/TIA Diagnosis No Discharge Core Measures Meds if any: Prescribed or Continued at Discharge Meds if any: NOT Prescribed or Continued at Discharge Venous thromboembolism Inclusion Criteria VTE Diagnosis No VTE Type NONE VTE Confirmed by (Test) NONE Discharge Core Measures - Per Current guidelines, there needs to be overlap - treatment for the first 5 days of Warfarin therapy. - If discharged on Warfarin prior to 5 days of - overlap therapy, the patient will need to be - assessed for post discharge needs including - *Post discharge parental anticoagulation - *Warfarin and/or parental anticoagulation education - *Follow up date to check INR post discharge At least 5 days overlap therapy as Inpatient No Meds if any: Prescribed or Continued at Discharge Note: Overlap Therapy is Warfarin and Anticoagulant Meds if any: NOT Prescribed or Continued at Discharge
[2017-12-17] MEDS ORDERED: PREDNISONE10 M2 PO ×2 (10:03→11:07)
[2017-12-17 10:11] LABS: ABSOLUTE BASOPHIL COUNT 0 /CUMM (0.0-0.2); ABSOLUTE EOSINOPHIL COUNT 0 /CUMM (0.0-0.7); ABSOLUTE GRANULOCYTE CT 9.6 /CUMM (1.4-6.5); BASOPHIL % 0 % (0.0-2.0); EOSINOPHIL % 0 % (0-5); GRANULOCYTE % 82.4 % (42.2-75.2); HEMATOCRIT 44.3 % (42-52); MEAN CORPUSCULAR HGB 32.2 PG (27.0-31.0); MEAN CORPUSCULAR HGB CONC 33.7 G/DL (33.0-37.0); MEAN CORPUSCULAR VOLUME 95.7 FL (80.0-94.0); MEAN PLATELET VOLUME 8.1 FL (7.4-10.4); PLATELET COUNT 402 /CUMM (130-400); RBC DISTRIBUTION WIDTH 12.8 % (11.5-14.5); RED BLOOD CELL CT 4.63 /CUMM (4.70-6.10); WHITE BLOOD CELL COUNT 11.6 /CUMM (4.8-10.8)
[2017-12-17] MEDS ORDERED: ZITHROMAX250 M2 PO (11:07)
--- NOTE | 2017-12-17 11:13 | Discharge Summary ---
Visit Information Visit Dates Admission Date: 12/13/17 Discharge Date: 12/17/2017 Hospital Course Course Attending Physician: Michel Rubio MD Primary Care Physician: Alen HUGO,Solitario Ojeda Hospital Course: Mr. White is a 67yo M w/ PMH of HTN, T2DM, CKD stage 3, COPD (former smoker quit 11 yrs ago, smoked 2 PPD for 40 yrs), presented to ER w/ progressive dyspnea and dry cough x 122k w/ right side sharp chest pain. He was given Augmentin, albuterol, robitussion and solumedrol by PCP however his breathing was not improved, thus came to ER for eval. Patient had sick contact fomr his , and did not get his flushot this year due to adverse reaction. Patient's PFT in 2014 revealed severe COPD. Patient also c/o bilateral lower extremity edema w/ recent weight gain over the last 6 months, without diagnosis of CHF or on any diuretics. ER Course: VSS w/ O2 sat 85% under RA -> 94% on 3LNC. Exam remarkable for bilateral lungs w/ reduced air entry with diffuse wheeze and basilar rhonchi+, Bilateral lower extremities w/ + pedal edema. Labs: no leukocytosis, D-dimer neg, bicarb 31, BUN 32, creat 1.8, glucose 177, lactic acid 1.9, trop neg, proBNP 295. AB.30/63/61/31. CXR: pulmonary emphysema, no consolidation or effusion. EKG: sinus rhythm, LAD, no acute changes. Patient was admitted to general medicine for management of the following: #COPD exacerbation Upon discharge, patient was started on IV solumedrol, Azithromycin, TRC/ Nebulizer including albuterol and symbicort. Patient's rapid flu was negative. Upon stablized on respiratory status, patient was started on oral prednisone and on gradual tapering. Patient remained afebrile over the hospital stay, despite he became leukocytosis at 11.9 upon discharge, likely due to use of steroids. Patient's O2 saturation dropped to 82% while ambulating under room air. He was discharged with home oxygen arranged, and was advised to follow up with bag machine tender for further PFT tests and possible sleep studies. #Bilateral lower extremity edema Patient underwent venous doppler that resulted negative for thrombosis. Patient' s echocardiogram showed normal systolic functions with borderline LV hypertrophy but without significant valvular abnomalities. Patient's lower extremity edema was likely due to CKD and/or use of his anti hypertensive medications (Amlodipine). #Chronic Kidney Disease. Patient's creatinine upon admission was 1.8, which was around his baseline in the last 6 years. Patient's Cr reamined stable over the hospital course and he was discharged with Cr 1.7. #Hypertension Patient's amlodipine and valsartan were held during admission due to renal dysfunction and lower extremity edema. Patient's blood pressure remained in 150- 160/70-80s during hospital stay, and upon discharge and resume of valsartan, aptient's blood pressure was back to 125/80 before discharge. #Hyperlipidemia Patient was continued on home dose of Atorvastatin #Diabetes Patient was placed on novolog sliding scale and AccuChek during hospital stay. DVT prophylaxis heparin SC + ALPS Diabetic diet CC2 Full Code Allergies: Coded Allergies: venom-honey bee (ANAPHYLAXIS 12/13/17) Pertinent Lab Results: SERVICE DATE: 12/13/17- EXAM TYPE: CARD - ECHOCARDIOGRAM CONCLUSIONS Normal left and right ventricular systolic function. Borderline LVH. No significant valvular abnormalities. Migel Sewell M.D. SERVICE DATE: 12/13/17-1541 EXAM TYPE: RAD - XRY-CHEST XRAY, TWO VIEWS IMPRESSION: 1. Pulmonary emphysema. 2. No evidence of cardiomegaly, congestive heart failure or other acute pathology compared to 03/14/2015. SERVICE DATE: 12/15/17- EXAM TYPE: US - US-EXT BILAT VENOUS DOPPLER IMPRESSION: Normal triplex scan without evidence of deep venous thrombosis involving the lower extremities. Small bilateral Marc's cysts. Laboratory Tests 12/17 12/16 0830 1030 Chemistry Sodium (137 - 145 mmol/L) 141 138 Potassium (3.5 - 5.1 mmol/L) 4.3 4.5 Chloride (98 - 107 mmol/L) 97 L 95 L Carbon Dioxide (22 - 30 mmol/L) 29 29 Anion Gap (5 - 16) 15 13 BUN (9 - 20 mg/dL) 41 H 43 H Creatinine (0.7 - 1.2 mg/dL) 1.7 H 1.7 H Estimated GFR (>60 ml/min) 41 L 41 L BUN/Creatinine Ratio (7 - 25 %) 24.1 25.3 H Hematology CBC w Diff NO MAN DIFF REQ NO MAN DIFF REQ WBC (4.8 - 10.8 /CUMM) 11.6 H 12.0 H RBC (4.70 - 6.10 /CUMM) 4.63 L 4.54 L Hgb (14.0 - 18.0 G/DL) 14.9 14.6 Hct (42 - 52 %) 44.3 42.8 MCV (80.0 - 94.0 FL) 95.7 H 94.4 H MCH (27.0 - 31.0 PG) 32.2 H 32.2 H MCHC (33.0 - 37.0 G/DL) 33.7 34.1 RDW (11.5 - 14.5 %) 12.8 12.4 Plt Count (130 - 400 /CUMM) 402 H 387 MPV (7.4 - 10.4 FL) 8.1 7.6 Gran % (42.2 - 75.2 %) 82.4 H 92.6 H Lymphocytes % (20.5 - 51.1 %) 8.6 L 3.9 L Monocytes % (1.7 - 9.3 %) 9.0 3.3 Eosinophils % (0 - 5 %) 0 0 Basophils % (0.0 - 2.0 %) 0 0.2 Absolute Granulocytes (1.4 - 6.5 /CUMM) 9.6 H 11.1 H Absolute Lymphocytes (1.2 - 3.4 /CUMM) 1.0 L 0.5 L Absolute Monocytes (0.10 - 0.60 /CUMM) 1.0 H 0.4 Absolute Eosinophils (0.0 - 0.7 /CUMM) 0 0 Absolute Basophils (0.0 - 0.2 /CUMM) 0 0 Disposition Summary Disposition Principal Diagnosis: COPD Exacerbation Hypertension Hyperlipidemia Diabetes Bilateral Lower Extremity Edema Additional Diagnosis: As above Discharge Disposition: home or self care Discharge Instructions General Discharge Information Code Status: Full Code Patient's Diet: Diabetic Patient's Activity: As tolerated on home oxygen Follow-Up Instructions/Appts: - Please follow up with Dr. Mathews for your pulmonary function test and further evaluation of your lung conditions. - Please continue to use home oxygen. - Please follow up with your primary care physician within 1-2 week of discharge. Inform your primary care physician of this admission to [facility]. - Continue your current medications per discharge instructions. - Please watch for these problems: Fever, Chills, Nausea, Vomiting, Shortness of Breath, Productive Cough, Chest Pain/Discomfort, Abdominal Pain, Active Bleeding or Bloody urine/stool. Medications at Discharge Discharge Medications: Stop taking the following medications: Methylprednisolone (Methylprednisolone) 4 MG TAB.DS.PK ORAL As Directed Qty = 21 Amoxicillin/Clavulanate Potass (Amox-Clav 875-125 MG Tablet) 875 MG-125 MG TABLET ORAL TWICE DAILY Qty = 14 Continue taking these medications: Amlodipine Besylate (Amlodipine Besylate) 10 MG TABLET 1 Tablet ORAL DAILY Qty = 30 Comments: Last Taken:12-17-17 Time:0840 Atorvastatin Calcium (Atorvastatin Calcium) 20 MG TABLET 1 Tablet ORAL DAILY Qty = 30 Comments: Last Taken:12-16-17 Time:0800 Metformin HCl (Metformin HCl) 1,000 MG TABLET 1 Tablet ORAL DAILY Qty = 30 Albuterol Sulfate (Proair Hfa) 90 MCG HFA.AER.AD 2 Puff Inhale through mouth As Directed as needed for RESP. Qty = 9 Comments: Last Taken:12-17-17 Time:0800 Codeine Phosphate/Guaifenesi (Codeine-Guaifen 10-100 MG/5 Ml) 10 MG-100 MG/5 ML LIQUID 10 Milliliters ORAL Q4H as needed for COUGH Qty = 180 Comments: Last Taken:12-17-17 Time:0840 Start taking the following new medications: Prednisone (Prednisone) 10 MG TABLET 1 Tablet ORAL TWICE DAILY Qty = 22 No Refills Instructions: . Comments: 12/18: Take 4 tablets, once daily 12/19-3: Take 3 tablets, once daily 12/22-6: Take 2 tablets, once daily 12/25-: Take 1 tablet, once daily 12/28: STOP Azithromycin (Zithromax) 250 MG TABLET 1 Tablet ORAL DAILY Qty = 1 No Refills Instructions: 1 tablet on 12/18 Comments: Last Taken:12-17-17 Time:0840 Copies To: Alen HUGO,Solitario Ojeda Attending MD Review Statement Documenting Attending: Michel Rubio MD Other Findings: A/P; 67-year-old male with obesity and questionable NICOLE, hypertension, diabetes, chronic kidney disease stage III admitted with shortness of breath likely secondary to acute bronchitis and COPD exacerbation. Patient is tapered on steroids, requiring oxygen supplementation, bronchodilators. Check walking pulse oximetry at discharge to assess need of home oxygen. Patient desaturates with walking and therefore need home oxygen at discharge. Patient to follow up with PCP in 3-5 days of discharge and Pulmonary in 1-2 weeks of discharge for outpatient sleep studies probable NICOLE. Plan of care d/wed patient who verbalised the understanding.
[2017-12-17 14:26] VITALS: BP 125/80
== END 2017-12-17 14:39 | DRG 189 ==
LOC: ERH 14:38 → ERHI 17:58 → 2NA 17:58 → ENRESERV 18:37 → ERHI 18:57 → ENTRNSPT 20:01 → 2NA 20:36 → CMPTRNSPT 21:02 → 2NA 12-16 08:42 → ENPENDDIS 12-17 11:27 → ENTRNSPT 12-17 14:13 → EDTRNSPT 12-17 14:31 → EDTRNSPTSTS 12-17 14:31 → CMPTRNSPT 12-17 14:36 → 2NA 12-17 14:39
PROVIDERS: Hospitalist; Physician Assistant; Student in an Organized Health Care Education/Training Program
DX: J96.01 Acute respiratory failure with hypoxia (principal); I27.29 Other secondary pulmonary hypertension; E11.22 Type 2 diabetes mellitus with diabetic chronic kidney disease; Z68.41 Body mass index [BMI] 40.0-44.9, adult; J44.1 Chronic obstructive pulmonary disease with (acute) exacerbation; J96.02 Acute respiratory failure with hypercapnia; J20.9 Acute bronchitis, unspecified; N18.3 Chronic kidney disease, stage 3 (moderate); Z87.891 Personal history of nicotine dependence; Z79.4 Long term (current) use of insulin; I12.9 Hypertensive chronic kidney disease with stage 1 through stage 4 chronic kidney disease, or unspecified chronic kidney disease; E78.5 Hyperlipidemia, unspecified; R60.9 Edema, unspecified; E66.9 Obesity, unspecified; G47.30 Sleep apnea, unspecified
CPT/HCPCS: 2NASP; 36415; 71046; 82436; 87040; 87070; 87449; 87450; 87804; 87804-59; 93005; 93010; 93306; 93970; J0456; J1644; J2920; J2930; J3490; J7060; J7512